=== PATIENT | male | born 1940 | race Two or more races ===

== ENCOUNTER 2024-10-29 10:46 | Inpatient (IN) | payer MEDICARE, OTHER ==
[2024-10-29] VITALS (27 sets, daily range): BP systolic 82–120; BP diastolic 36–57; PULSE 55–75; RESP 12–21; TEMP 97.9–98.1; O2SAT 94–99
[~2024-10-29] VITALS: Ht 165.1 cm; Wt 57.0 kg
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
--- NOTE | 2024-10-29 11:11 | ED.PDOC ---
HPI Comments 83 y/o M, with PMHX of HTN, HLD, CAD, DE and testicular hernia, brought in by daughter presents to the ED for CC of chest pain. Per patient's daughter, patient has been experiencing substernal non-radiating chest pain since 0800 this morning (10/29/24). Patient's daughter relays, that patient has been getting up more than usual throughout the night and has been complaining of urinary retention; patient seen at [facility] where 600ml of clear yellow urine was removed from his bladder. Patient was further relayed, to [facility] ED for changes in his EKG. Upon arrival to the ED, patient's EKG showed right bundle branch block and ST elevation in the lateral leads; patient transferred to bed 19 and code STEMI called. Chief Complaint: Chest Pain Time Seen by MD: 11:00 Reviewed Notes: Nurses Notes, Medications, Allergies Information Source: Patient, Relative (Child) Mode of Arrival: Ambulatory Severity: Mild Timing: Hours Duration: Intermittent Prehospital treatment: 12 Lead EKG Location: Substernal Radiation: No Radiation Quality: Pressure Onset: At Rest Cardiac Risk Factors: Family History, Hyperlipidemia, HTN PE Risk Factors: None History of: DE Modifying Factors: Nothing Associated Signs and Symptoms: None Past Medical History PAST MEDICAL HISTORY: CAD, High Lipids, HTN, DE Past Medical History (Other): TESTICULAR HERNIA Surgical History (Other): STENTS Family History Family History: Family hx of stroke Social History Smoker: Non-Smoker Alcohol: Denies ETOH Use Drugs: Denies Drug Use Lives In: Home Constitutional: denies: chills, diaphoresis, fatigue, fever, malaise, sweats, weakness, others EENTM: denies: blurred vision, double vision, ear bleeding, ear discharge, ear drainage, ear pain, ear ringing, eye pain, eye redness, hearing loss, mouth pain, mouth swelling, nasal discharge, nose bleeding, nose congestion, nose pain, photophobia, tearing, throat pain, throat swelling, voice changes, others Respiratory: denies: cough, hemoptysis, orthopnea, SOB at rest, shortness of breath, SOB with excertion, stridor, wheezing, others Cardiovascular: reports: chest pain; denies: dizzy spells, diaphoresis, Dyspnea on exertion, edema, irregular heart beat, left arm pain, lightheadedness, palpitations, PND, syncope, others Gastrointestinal: denies: abdomen distended, abdominal pain, blood streaked bowels, constipated, diarrhea, dysphagia, difficulty swallowing, hematemesis, melena, nausea, poor appetite, poor fluid intake, rectal bleeding, rectal pain, vomiting, others Genitourinary: reports: others (URINARY RETENTION); denies: burning, dysuria, flank pain, frequency, hematuria, incontinence, penile discharge, penile sore, pain, testicle pain, testicle swelling, urgency Neurological: denies: dizziness, fainting, headache, left sided numbness, left sided weakness, numbness, paresthesia, pre-existing deficit, right sided numbness, right sided weakness, seizure, speech problems, tingling, tremors, weakness, others Musculoskeletal: denies: back pain, gout, joint pain, joint swelling, muscle pain, muscle stiffness, neck pain, others Integumetry: denies: bruises, change in color, change in hair/nails, dryness, laceration, lesions, lumps, rash, wounds, others Allergic/Immunocompromised: denies: Difficulty Healing, Frequent Infections, Hives, Itching, others Hematologic/Lymphatic: denies: anemia, blood clots, easy bleeding, easy bruising, swollen glands, others Endocrine: denies: excessive hunger, excessive sweating, excessive thirst, excessive urination, flushing, intolerance to cold, intolerance to heat, u nexplained weight gain, unexplained weight loss, others Psychiatric: denies: anxiety, bipolar disorder, depression, hopeless, panic disorder, schizophrenia, sleepless, suicidal, others All Other Systems: Reviewed and Negative Physical Exam General Appearance: Moderate Distress HEENT: Pale Conjuntivae (L), Pale Conjuntivae (R), Pharynx Normal, TMs Normal Neck: Full Range of Motion, Non-Tender, Normal, Normal Inspection Respiratory: Chest Non-Tender, Lungs Clear, No Accessory Muscle Use, No Re spiratory Distress, Normal Breath Sounds Cardiovascular: No Edema, No JVD, No Murmur, No Gallop, Normal Peripheral Pulses, Regular Rate/Rhythm Breast Exam: Deferred Gastrointestinal: No Organomegaly, Non Tender, No Pulsatile Mass, Normal Bowel Sounds, Soft Genitalia: Deferred Pelvic: Deferred Rectal: Deferred Extremities: No calf tenderness, Normal capillary refill, Normal inspection, Normal range of motion, Non-tender, No pedal edema Musculoskeletal : Apperance: Normal Neurologic: Alert, rubber goods inspector II-XII nml as Tested, Motor Weakness, Normal Affect, No Sensory Deficits Cerebellar Function: Normal Reflexes: Normal Skin: Dry, Normal Color, Warm Lymphatic: No Adenopathy EKG EKG : Pulse Rate (adult): 70 Bonnyman: Normal Cardiac Rhythm: NSR Block: RBBB Hypertrophy: None Comments ST ELEVATION IN LATERAL LEADS Was a procedure done? Was a procedure done?: No CP Differential Dx Differential Diagnosis: Angina, Electrolyte Disorder, Heart Failure, DE, Pulmonary Embolus Differential Diagnosis: CHF Differential Diagnosis: Pericarditis X-Ray, Labs, Meds, VS Vital Signs Date Time Temp Pulse Resp B/P (MAP) Pulse Ox O2 Delivery O2 Flow Rate FiO2 10/29/24 11:11 70 10/29/24 10:52 70 10/29/24 10:50 98.7 72 18 126/72 (90) 96 98.7 Lab Test 10/29/24 10:54 Range/Units White Blood Count Pending Red Blood Count Pending Hemoglobin Pending Hematocrit Pending Mean Corpuscular Volume Pending Mean Corpuscular Hemoglobin Pending Mean Corpuscular Hemoglobin Concent Pending Red Cell Distribution Width Pending Platelet Count Pending Mean Platelet Volume Pending Neutrophils (%) (Auto) Pending Lymphocytes (%) (Auto) Pending Monocytes (%) (Auto) Pending Basophils (%) (Auto) Pending Neutrophils # (Auto) Pending Lymphocytes # (Auto) Pending Monocytes # (Auto) Pending Sodium Level Pending Potassium Level Pending Chloride Level Pending Carbon Dioxide Level Pending Anion Gap Pending Blood Urea Nitrogen Pending Creatinine Pending Glomerular Filtration Rate Calc Pending BUN/Creatinine Ratio Pending Serum Glucose Pending Calcium Level Pending Magnesium Level Pending Total Bilirubin Pending Aspartate Amino Transferase (AST) Pending Alanine Aminotransferase (ALT) Pending Alkaline Phosphatase Pending Troponin I High Sensitivity Pending B-Type Natriuretic Peptide Pending Total Protein Pending Albumin Pending Triglycerides Level Pending Cholesterol Level Pending LDL Cholesterol Pending HDL Cholesterol Pending Thyroid Stimulating Hormone (TSH) Pending Current Medications Medications (Trade) Dose Ordered Sig/Olu Route Start Time Stop Time Status Last Admin Aspirin 324 mg ONCE ONCE PO 10/29/24 11:00 10/29/24 11:02 DC 10/29/24 11:14 Patient was given aspirin here in the emergency department's. Upon arrival, the patient had an EKG done and we did send it to the on-call STEMI engineering specialist technician (Dr. Jose) At this time, the patient is deemed a STEMI The patient is being sent to medical lab tech instructor. We have discussed the findings with the patient and his daughter. The patient was given heparin 4000 units IV push The patient's labs are pending and will be followed up by the hospitalist and the engineering specialist technician IV Hep-Lock was established and the patient has been taken to medical lab tech instructor at this time Images Reviewed?: Images reviewed and evaluated by me Time of 1ST Reevaluation: 11:30 Reevaluation 1ST: Unchanged Patient Education/Counseling: Diagnosis, Treatment, Prognosis Family Education/Counseling: Diagnosis, Treatment, Prognosis Departure 1 Departure Time of Disposition: 11:27 Impression: Primary Impression: STEMI (ST elevation myocardial infarction) Qualified Codes: I21.3 - ST elevation (STEMI) myocardial infarction of unspecified site Disposition: ADMITTED INPATIENT Admit to: ICU Condition: Fair Critical Care Note Critical Care Time?: Yes (35 min-critical care time only) Stability Stability form required: Yes Unstable for transfer: ICU, CCU, PCU, KARINA (Intensive VS monitoring), ED Physician Assesment (Clinical assesment) Heart Score Heart Score: Heart Score Response (Comments) Value History Moderate Suspicious [address]-Deviation 2 Age >65 2 Risk Factors 1 or 2 risk factors 1 Troponin N/A 0 Total 6 I personally scribed for KATERINA COOPER MD ([email or web address]) on 10/29/24 at 11:11. Electronically submitted by Brunilda Naik ([email or web address]). KATERINA COOPER MD Oct 29, 2024 11:11
--- NOTE | 2024-10-29 11:11 | DVHINCON2 ---
Date Seen: Oct 29, 2024 Referring Physician MD Roman Reason for Consultation STEMI History of Present Illness This is a pleasant Kazakh-speaking mostly 83-year-old man who presented to the emergency room with a chief complaint of chest pain since [id number] am. Describes his chest pain as substernal, nonradiating, pressure-like, intermittent, non provoked, and rated as 7/10. Complains also of urinary hesitancy, retention, and dribbling causing pelvic discomfort. He underwent a 12 lead electrocardiogram revealing an acute anterior wall ST-elevation myocardial infarction with reciprocal inferior ST changes for which Code STEMI was activated by Dr. Jose. Blood work is pending at this time. Medical history includes coronary artery disease status post PTCA including two MAURIZIO at [facility] [place] [facility] on 2000 and with current ASA therapy, agent, dyslipidemia, and testicular hernia. Past Medical History Past medical history reviewed. No other significant than mentioned above. Past Surgical History PTCA including two MAURIZIO, 2000 Family History Family history reviewed. Social History Denies the use of illicit drugs, alcohol, or tobacco use. Home Meds Home medications reviewed. Review of Systems Constitutional: No symptom reported Ears, Nose, & Throat: No symptom reported Eyes: No symptom reported Neurological: No symptoms reported Pulmonary/Respiratory: No symptom reported Cardiovascular: Chest pain Gastrointestinal: No symptom reported Genitourinary: Dysuria Musculoskeletal: No symptom reported Skin: No symptom reported Psychiatric: No symptom reported Endocrine: No symptom reported Hemotologic/Lymphatic: No symptom reported Vital Signs Vital Signs Date Time Temp Pulse Resp B/P (MAP) Pulse Ox O2 Delivery O2 Flow Rate FiO2 10/29/24 10:52 70 10/29/24 10:50 98.7 18 126/72 (90) 96 98.7 Physical Exam General Appearance: Cooperative. Well developed. Well nourished. In no acute distress Head Exam: Normal inspection Neck Exam: Normal inspection. Non-tender. Normal alignment Pulmonary/Respiratory: Chest non-tender. Clear bilateral breath sounds Cardiovascular/Chest: Regular rate and rhythm. S1, S2. Acute anterior wall [place] with reciprocal inferior ST changes. No murmurs. No JVD. Peripheral Pulses: 2+ Radial (R). 2+ Radial (L). 2+ Pedal (R). 2+ Pedal (L) Abdominal Exam: Normal bowel sounds. Soft. Nontender. No hepatospenomegaly. No masses Ankle Exam: Negative ankle edema Lower extremities: Negative lower extremity edema Neuro/Mental Status: A&O x4. Coherent Thoughts/Psych: Normal thought pattern. Appropriate mood and affect. Good judgement and insight Appearance: In no acute distress Skin Exam: Normal inspection. Normal color. Warm. Dry Labs/Diagnostic Data Labs Test 10/29/24 10:54 Range/Units Assessment Acute anterior wall myocardial infarction Coronary artery disease status post PTCA including two MAURIZIO, on ASA Hypertension Dyslipidemia Plan/Recommendation (Dr. Jose) Scheduled for emergent cardiac catheterization and coronary angiogram with Dr. Jose. All risks and benefits of the procedure were discussed with the patient who agrees to proceed with intervention. All questions answered. The patient was loaded with ASA, Plavix, and heparin IV. We will continue further cardiac evaluation with a transthoracic echocardiogram to rule out structural heart disease. Continue ACS protocol. Further orders per clinical course. Thank you for allowing us to participate in this patient's care. Please call if you have any questions or concerns. Critical care time: 40 min. This medical document was created using an electronic medical record system with voice recognition software and computerized dictation system. Although this document has been carefully reviewed, there might still be some phonetic and typographical errors. Occasional wrong-word or ``sound-alike substitutions may have occurred due to the inherent limitations of voice recognition software. These areas are purely typographical due to imperfections of the software programs and do not reflect any compromise in the patient's medical care. Please read the chart carefully and recognize, using context, where these substitutions have occurred. Plan discussed with: Patient, Daughter, Other NYHA Physical activity limitations: NA Date of Service: Oct 29, 2024 Billing Provider: Yajaira Lopez Cardiology Common Codes: 30637-[id number] CARE 30-74 MIN YAJAIRA LOPEZ [facility] Oct 29, 2024 11:11
[2024-10-29] MEDS: ASPirin 81 mg TAB PO ONE (11:14)
[2024-10-29] MEDS: CLOPIDOGREL BISULFATE 75 MG TAB ONE (11:14)
[2024-10-29 11:29] LABS: Basophils # (auto) 0 10 ^3/uL (0-0.2); Basophils % (auto) 0.5 % (0.0-2.0); Eosinophils # (auto) 0 10 ^3/uL (0-0.8); Eosinophils % (auto) 0.5 % (0.0-7.0); Hematocrit 41.9 % (41.0-53.0); Hemoglobin 13.6 g/dL (13.5-17.5); Lymphocytes # (auto) 1.2 10 ^3/uL (0.4-5.4); Lymphocytes % (auto) 14.2 % (10.0-50.0); Mean Corpuscular Hemoglobin 29.9 pg (28.0-32.0); Mean Corpuscular Hgb Conc. 32.5 g/dL (32.0-36.0); Mean Corpuscular Volume 92.1 fL (80.0-100.0); Monocytes # (auto) 0.4 10 ^3/uL (0-1.3); Monocytes % (auto) 5.1 % (0.0-12.0); Neutrophils # (auto) 6.6 10 ^3/uL (1.6-8.6); Neutrophils % (auto) 79.7 % (37.0-80.0); Platelet Count (auto) 185 10^3/uL (140-450); Red Blood Cells 4.55 10^6/uL (4.5-5.90); White Blood Cell 8.2 10^3/uL (4.4-10.8)
[2024-10-29 11:33] LABS: Urine Bacteria None Seen /hpf (None Seen)
[2024-10-29 11:35] LABS: Alanine Aminotransferase 22 U/L (7-40); Albumin 4.3 g/dL (3.2-4.8); Alkaline Phosphatase 78 U/L (46-116); Anion Gap 8 (5-15); Aspartate Aminotransferase 21 U/L (13-40); BUN/Creatinine Ratio 17.5 (10.0-20.0); Blood Urea Nitrogen 18 mg/dL (9-23); Calcium 9.7 mg/dL (8.7-10.4); Carbon Dioxide 27 mmol/L (20-31); Chloride 106 mmol/L (98-107); Potassium 4.4 mmol/L (3.5-5.1); Sodium 141 mmol/L (136-145); Total Protein 6.4 g/dL (5.7-8.2)
[2024-10-29 11:36] LABS: Bilirubin, Total 0.8 mg/dL (0.2-1.0)
[2024-10-29 11:38] LABS: Glucose 112 mg/dL (74-106)
--- NOTE | 2024-10-29 11:38 | DVH ---
EXAM: XY CHEST PORTABLE HISTORY: CP COMPARISON: None TECHNIQUE: Portable upright AP view of the chest was performed. FINDINGS: No pneumothorax, consolidative infiltrates, or pulmonary edema. The heart is borderline enlarged. The re is mild thoracic dextroscoliosis. The humeral heads are high-riding and abut the undersurfaces of the acromions, consistent with significant rotator cuff tendinopathy bilaterally. IMPRESSION: No acute intrathoracic process.
[2024-10-29 11:55] LABS: Urine Blood 1+ /uL (Negative); Urine Clarity Clear (Clear); Urine Color Light-Yellow (Yellow); Urine Mucus FEW (None Seen); Urine Protein, UAD Negative (Negative); Urine Specific Gravity 1.015 (1.001-1.035); Urine Squamous Epithelial Cell None Seen /hpf (<5); Urine Urobilinogen Normal (Negative); Urine WBC 3 /HPF (0-3); Urine pH 5.5 (5.0-9.0)
[2024-10-29 12:20] LABS: LDL Cholesterol 55 mg/dL (< 100); Magnesium 1.8 mg/dL (1.6-2.6)
[2024-10-29 12:21] LABS: Cholesterol 141 mg/dL (< 200); HDL Cholesterol 40 mg/dL (40-59); Triglycerides 212 mg/dL (< 150)
--- NOTE | 2024-10-29 12:41 | DVHOP2 ---
Operative Report - 2 Report Details Date: 10/29/24 Preop Diagnosis: Acute ST-elevation myocardial infarction. Postop Diagnosis: Successful stenting of the LAD Surgeon: Abel Jose MD Anesthesiologist: Conscious sedation Anesthesia: Mac, Local (Fentanyl and Versed administered perioperatively. Patient was monitored throughout the procedure. ) Implant: Medtronic placido Ritchie drug-eluting stents Consent: The patient was informed of the risks and benefits of the procedure. These include but are not limited to complications of anesthesia, postoperative infection, incomplete relief of symptoms, recurrence of symptoms, damage to blood vessels, nerves and tendons, deep venous thrombosis, pulmonary embolism and possible need for repeat surgery in the future. Complications: No complications Estimated Blood Loss: 5 cc Findings: 9% stenosis of mid LAD. Tandem lesions. Indications for Surgery: Acute ST-elevation myocardial infarction Name of Procedure Performed Left heart catheterization. Bilateral cine coronary angiography. Left ventriculography. PTCA and stenting of the LAD. Intravascular ultrasound evaluation of the LAD. Procedure Details Procedure Details: Prior local anesthesia with 2% lidocaine to the right wrist and full informed consent obtained. Under fluoroscopic and ultrasound guidance we gained access into the radial artery. A six Hebrew sheath was in place and each three five EBU guide was then placed to evaluate the right and left coronary ostia and for ventriculography without complications. Hemodynamics: Aortic blood pressure was 110/70 end-diastolic pressure was 10 there was no gradient across the aortic valve on pullback. Coronary anatomy the RCA is a large vessel. It was nondominant. It was normal in its proximal mid and distal segments. Left main is large and normal. The circumflex is large with two marginals and the PDA free of significant disease. The LAD is a large vessel it is stented proximally. Distal to the stent there are tandem lesions of 95% stenosis to the level of the mid LAD. The distal LAD is rather small. The apical segment of the LAD has a 95% stenosis. This is small-vessel. Ventriculography in the JOLLEY projection reveals an EF about 25-50% with anterior apical akinesis. Angioplasty was performed for which a choice floppy wire was placed across the area of stenosis. We then performed angioplasty with a two five balloon. We placed a large 3-0 by 34 mm stent into the LAD. An intravascular ultrasound was then used to evaluate proper placement. There was a small distal dissection at the edge that was noted. We placed a 3.0 x 12 mm stent also a Medtronic Ritchie placido drug-eluting stent. This was inflated to approximately 12 atmospheres. Mild distal spasm was noted. Intravascular ultrasound revealed adequate apposition of the stents. Impression: Successful PTCA and stenting of the LAD. Decreased left ventricular ejection fraction. Normal left ventricular end-diastolic pressure at rest. Single-vessel coronary artery disease involving the LAD. Recommendations: Risk factor modification dual antiplatelet therapy and lipid- lowering therapy to continue. Monitoring entry for congestive heart failure. Condition Good Disposition Still a Patient Date of Service: Oct 29, 2024 Billing Provider: ABEL JOSE Sr., MD Cardiology Common Codes: 44214-[id number] INP/OBS CARE (High) Cardiology Procedure Codes: 14466 -PTCA W/STENT PLACEMENT, [id number] FOR STEMI W/STENT (Intravascular ultrasound evaluation of the LAD pulmonary) ABEL JOSE Sr., MD Oct 29, 2024 12:41
[2024-10-29] MEDS ORDERED: MORPHINE SULFATE INJ 2 MG/ml SYRG IV PRN (13:45)
--- NOTE | 2024-10-29 13:54 | DVHHP2 ---
Review of Systems Allergies: Coded Allergies: No Known Drug Allergy (Verified Allergy, Unknown, 10/29/24) Medications Current Medications Medications Dose Ordered Sig/Olu Route Start Time Stop Time Status Last Admin Dose Admin Aspirin 81 mg DAILY PO 10/30/24 10:00 Clopidogrel Bisulfate 75 mg DAILY PO 10/30/24 10:00 Metoprolol Tartrate 12.5 mg BID PO 10/29/24 22:00 Nitroglycerin 0.4 mg Q5MINP PRN SL 10/29/24 13:45 UNV Morphine Sulfate 2 mg Q30M PRN IV 10/29/24 13:45 UNV Exam Vital Signs Vital Signs Date Time Temp Pulse Resp B/P (MAP) Pulse Ox O2 Delivery O2 Flow Rate FiO2 10/29/24 11:11 70 10/29/24 11:05 98.7 12 128/71 (90) 99 98.7 10/29/24 11:05 Nasal Cannula* 2 28 Labs/Xrays Labs Test 10/29/24 11:31 10/29/24 10:54 Range/Units Urine Color Light-yellow Yellow Urine Clarity Clear Clear Urine pH 5.5 5.0-9.0 Urine Specific [place] 1.015 1.001-1.035 Urine Protein Negative Negative Urine Ketones Negative Negative Urine Blood 1+ H Negative /uL Urine Nitrite Negative Negative Urine Bilirubin Negative Negative Urine Urobilinogen Normal Negative mg/dL Urine Leukocyte Esterase Negative Negative /uL Urine RBC 14 0 - 3 /hpf Urine Microscopic WBC 3 0-3 /HPF Urine Squamous Epithelial Cells None seen <5 /hpf Urine Bacteria None seen None Seen /hpf Urine Mucus Few None Seen Urine Glucose Normal Normal mg/dL White Blood Count 8.2 4.4-10.8 10^3/uL Red Blood Count 4.55 4.5-5.90 10^6/uL Hemoglobin 13.6 13.5-17.5 g/dL Hematocrit 41.9 41.0-53.0 % Mean Corpuscular Volume 92.1 80.0-100.0 fL Mean Corpuscular Hemoglobin 29.9 28.0-32.0 pg Mean Corpuscular Hemoglobin Concent 32.5 32.0-36.0 g/dL Red Cell Distribution Width 14.0 11.8-14.3 % Platelet Count 185 140-450 10^3/uL Mean Platelet Volume 9.5 6.9-10.8 fL Neutrophils (%) (Auto) 79.7 37.0-80.0 % Lymphocytes (%) (Auto) 14.2 10.0-50.0 % Monocytes (%) (Auto) 5.1 0.0-12.0 % Eosinophils (%) (Auto) 0.5 0.0-7.0 % Basophils (%) (Auto) 0.5 0.0-2.0 % Neutrophils # (Auto) 6.6 1.6-8.6 10 ^3/uL Lymphocytes # (Auto) 1.2 0.4-5.4 10 ^3/uL Monocytes # (Auto) 0.4 0-1.3 10 ^3/uL Eosinophils # (Auto) 0 0-0.8 10 ^3/uL Basophils # (Auto) 0 0-0.2 10 ^3/uL Nucleated Red Blood Cells 0.0 % Sodium Level 141 136-145 mmol/L Potassium Level 4.4 3.5-5.1 mmol/L Chloride Level 106 98-107 mmol/L Carbon Dioxide Level 27 20-31 mmol/L Anion Gap 8 5-15 Blood Urea Nitrogen 18 9-23 mg/dL Creatinine 1.03 0.700-1.30 mg/dL Glomerular Filtration Rate Calc 72 >90 mL/min BUN/Creatinine Ratio 17.5 10.0-20.0 Serum Glucose 112 H 74-106 mg/dL Calcium Level 9.7 8.7-10.4 mg/dL Magnesium Level 1.8 1.6-2.6 mg/dL Total Bilirubin 0.8 0.2-1.0 mg/dL Aspartate Amino Transferase (AST) 21 13-40 U/L Alanine Aminotransferase (ALT) 22 7-40 U/L Alkaline Phosphatase 78 46-116 U/L Troponin I High Sensitivity 2199 *H </=54 ng/L B-Type Natriuretic Peptide 84.28 0-100 pg/mL Total Protein 6.4 5.7-8.2 g/dL Albumin 4.3 3.2-4.8 g/dL Triglycerides Level 212 H < 150 mg/dL Cholesterol Level 141 < 200 mg/dL LDL Cholesterol 55 < 100 mg/dL HDL Cholesterol 40 40-59 mg/dL Thyroid Stimulating Hormone (TSH) 2.16 0.55-4.78 uIU/mL Assessment/Plan Assessment/Plan see dictated note Plan discussed with: Patient, Daughter My Orders Orders - NETTA ACOSTA MD Procedure Category Date Status Time Admit ADMIT 10/29/24 Transmitted 13:40 Nitroglycerin [facility] 10/29/24 Logged Sublingual (Ntrostat 13:45 Morphine Sulfate [facility] 10/29/24 Logged Injection 13:45 Stat Ekg For Chest [facility] 10/29/24 In Process Pain 13:40 Notify Md Of Changes [facility] 10/29/24 In Process From Base 13:40 Review Consultant For [facility] 10/29/24 In Process 24 Hours 13:40 Emergency Dysrhythmia [facility] 10/29/24 In Process Protocol 13:40 Rhythm Strips Once [facility] 10/29/24 In Process Every Shift 13:40 Oxygen By Nasal RT 10/29/24 Transmitted Cannula 13:40 Date of Service: Oct 29, 2024 Billing Provider: NETTA ACOSTA MD Common Visit Codes: [id number] CARE 30-74 MIN NETTA ACOSTA MD Oct 29, 2024 13:54
[2024-10-29] MEDS ORDERED: ACETAMINOPHEN 325 MG TAB PO PRN (14:00)
[2024-10-29] MEDS ORDERED: ONDANSETRON HCL 4 MG/2 ML VIAL IV PRN (14:00)
--- NOTE | 2024-10-29 14:11 | DVHHP ---
ADMIT DATE: 10/29/2024 HISTORY OF PRESENT ILLNESS: The patient is an 83-year-old gentleman who was admitted after he had initial severe suprapubic pain with difficulty in urination. The patient subsequently developed increasing chest pain. The patient was taken to [facility] and subsequently brought to the Emergency Room. The patient denies any dizziness or syncope. No history of nausea. No history of vomiting. REVIEW OF SYSTEMS: Review of rest of systems are otherwise currently negative. PAST MEDICAL HISTORY: Significant for coronary artery disease, status post stent, as well as a history of hypertension, hyperlipidemia and BPH. MEDICATIONS: He takes Hytrin and the rest of the medications are unknown. ALLERGIES: No known drug allergies. SOCIAL HISTORY: Denies smoking or alcohol. Lives at home with his . FAMILY HISTORY: Negative. PHYSICAL EXAMINATION: GENERAL: The patient is awake, alert. VITAL SIGNS: Temperature 98.7, pulse 70 per minute, blood pressure 120/71. SHEENT: Unremarkable. NECK: No JVD, no pedal edema. LUNGS: Equal bilaterally. No added sounds. CARDIOVASCULAR: S1 and S2 are regular. No murmurs. ABDOMEN: Soft. There is no organomegaly. NEUROLOGIC: Nonfocal. MUSCULOSKELETAL: Normal. ASSESSMENT AND PLAN: * Acute myocardial infarction. The patient is status post angiography with stent placement in LAD. He will continue on aspirin and Plavix. * Questionable acute systolic heart failure. An echo will be obtained. * Hypertension. * Hyperlipidemia. * BPH. The patient is status post Chapa. He will be placed on Flomax. * Hyperlipidemia. Critical care time spent was 38 minutes. MD CHARISMA Ge/TEMI TID: [id number] RECEIPT: [id number]
[2024-10-29] MEDS: NITROGLYCERIN 0.4 MG SL TAB SL PRN (17:01)
[2024-10-29] MEDS: TAMSULOSIN HYDROCHLORIDE 0.4 MG CAP PO SCH (19:55)
[2024-10-29] MEDS: IODIXANOL 320MG/ML 100ML BTL IV ONE (20:03)
[2024-10-29] MEDS: fentaNYL CITRATE 100 MCG/2 ML VL ONE (20:03)
[2024-10-29] MEDS: HEPARIN IN NS 1000Units/500mL 1,500 ML ONE (20:03)
[2024-10-29] MEDS: VERAPAMIL 2.5MG/ML INJ 2ML VIAL IV ONE (20:04)
[2024-10-29] MEDS: MIDAZOLAM HCL 2MG/2ML 2ml VIAL (1mg/ml) ONE (20:04)
[2024-10-29] MEDS: LIDOCAINE 2%HCL (LOCAL ANESTH.) INJ 20ML MDV ONE (20:04)
[2024-10-29] MEDS: SODIUM CHL 0.9% 50 ML ONE (20:04)
[2024-10-29] MEDS: ONDANSETRON HCL 4 MG/2 ML VIAL IV ONE (20:05)
[2024-10-29] MEDS: HEPARIN 1,000 UNITS/ml 1ML VIAL IV ONE (20:05)
[2024-10-29] MEDS: ANGIOMAX 250 MG VIAL IV ONE (20:05)
[2024-10-29] MEDS: MORPHINE SULFATE INJ 2 MG/ml SYRG IV ONE (20:05)
[2024-10-29] MEDS: HEPARIN SODIUM (PORCINE) 5000 UNITS/ML 1ML VIAL ONE (20:06)
[2024-10-29] MEDS: EPINEPHrine HCL 1 MG/10 ML SYRG ONE (20:06)
[2024-10-29] MEDS: NOREPINEPHRINE 8 MG/250ML KIT 0 ML IV ONE (20:06)
--- NOTE | 2024-10-29 20:14 | DVHSR ---
APPROVED REPORT EXAM: Two-dimensional and M-mode echocardiogram with Doppler and color Doppler. Blood Pressure: 128/71 mmHg INDICATION STEMI RISK FACTORS Height: 65, Weight: 126 DIMENSIONS LVDd (3.8-5.7cm)LA (2D)4.0 (1.9-4.0cm)Aortic Root3.2 (2.0-3.7cm) LVDs (2.5-4.0cm)LA (MM) (1.9-4.0cm)Aortic Cusp Exc1.4 (1.5-2.0cm) EF (%) 42.0 (55-70%)Rt. Atrium3.6 (1.9-4.0cm)Asc. Aorta cm Mitral Valve MitralMitral Stenosis E wave0.96m/sMV Mean GR.2mmHg A wave0.80m/sMV Peak GR.84mmHg E/A ratio1.22D MVAcm2 DECEL [id number] 1/2 [id number] IVRTmsDop MVA2.61cm2 Aortic Valve Aortic ValveAortic Stenosis V10.78m/Benito Mean GR.4mmHg V21.40m/Benito Peak GR.8mmHg LVOT Diameter1.8 (1.8-2.4cm)Doppler AVA1.42cm2 AI P 1/2 Pfuo153.99ms Pulmonic Valve V20.79m/s Tricuspid Valve TR Velocity3.18m/s [id number] Conclusion Technically good study. Sinus rhythm. Left ventricular enlargement. Left atrial enlargement of mild degree. Mild aortic sclerosis. Tricuspid and pulmonic or structurally normal. Left ventricular function is diminished. There is anterior hypokinesis of severe degree with anterio r apical akinesis. Overall estimated ejection fraction is calculated at approximately 30%. Moderate tricuspid regurgitation. Mild aortic insufficiency. No pericardial effusion masses or vegetations.
[2024-10-29] MEDS: KETOROLAC TROMETH 30 MG/ML 1ML VIAL IV ONE (20:28)
[2024-10-29] MEDS: ATORVASTATIN 20 MG TAB PO SCH (21:25)
[2024-10-29] MEDS: METOPROLOL TARTRATE 25 MG TAB PO SCH (21:27)
[2024-10-29] MEDS: ALBUMIN 5% 250 ML IV ONE (23:23)
[2024-10-30] VITALS (31 sets, daily range): BP systolic 80–125; BP diastolic 34–73; PULSE 59–86; RESP 8–22; TEMP 97.9–99.1; O2SAT 95–100
[2024-10-30 04:24] LABS: Anion Gap 6 (5-15); Carbon Dioxide 26 mmol/L (20-31); Potassium 3.7 mmol/L (3.5-5.1); Sodium 140 mmol/L (136-145)
[2024-10-30 04:25] LABS: Basophils # (auto) 0 10 ^3/uL (0-0.2); Basophils % (auto) 0.6 % (0.0-2.0); Eosinophils # (auto) 0.1 10 ^3/uL (0-0.8); Eosinophils % (auto) 1.1 % (0.0-7.0); Hematocrit 34.4 % (41.0-53.0); Hemoglobin 11.3 g/dL (13.5-17.5); Lymphocytes # (auto) 2.1 10 ^3/uL (0.4-5.4); Lymphocytes % (auto) 25.7 % (10.0-50.0); Mean Corpuscular Hemoglobin 30.1 pg (28.0-32.0); Mean Corpuscular Hgb Conc. 32.8 g/dL (32.0-36.0); Mean Corpuscular Volume 91.7 fL (80.0-100.0); Monocytes # (auto) 0.7 10 ^3/uL (0-1.3); Monocytes % (auto) 8.8 % (0.0-12.0); Neutrophils # (auto) 5.2 10 ^3/uL (1.6-8.6); Neutrophils % (auto) 63.8 % (37.0-80.0); Platelet Count (auto) 137 10^3/uL (140-450); Red Blood Cells 3.76 10^6/uL (4.5-5.90); Red Cell Distribution Width 14.1 % (11.8-14.3); White Blood Cell 8.1 10^3/uL (4.4-10.8)
[2024-10-30 04:30] LABS: Blood Urea Nitrogen 15 mg/dL (9-23); Glucose 93 mg/dL (74-106)
[2024-10-30 04:52] LABS: Chloride 108 mmol/L (98-107)
--- NOTE | 2024-10-30 05:58 | DVH ---
CHEST RADIOGRAPH Indication: CAD Technique: Single frontal view of the chest was obtained Comparison: XY CHEST PORTABLE on DOS: 10/29/24 FINDINGS: Lines and Tubes: None Lungs: No focal consolidation. Pleura: No effusion. No pneumothorax. Cardiomediastinal contours: Unremarkable Bones: No acute osseous abnormality. IMPRESSION: 1. No acute cardiopulmonary disease.
[2024-10-30] MEDS: CARVEDILOL 3.125 MG TAB PO SCH (10:30)
[2024-10-30] MEDS: CLOPIDOGREL BISULFATE 75 MG TAB PO SCH (10:30)
[2024-10-30] MEDS: ASPirin 81 mg TAB PO SCH (10:31)
--- NOTE | 2024-10-30 11:07 | DVHPN2 ---
Progress Note Date Seen: Oct 30, 2024 Medical Necessity Reason Pt with a Central, PICC or Fol: Yes The following are medically ne: Gonzalez Catheter Reason for gonzalez catheter: Strict I&O Subjective Patient reports: No new complaints Review of Systems: HEENT:Normal, CVS:Normal, RESPIRATORY:Normal, GI:Normal, :Normal, MSK:Normal, NEURO:Normal Objective vital signs Vital Sign Date Time Temp Pulse Resp B/P (MAP) Pulse Ox O2 Delivery O2 Flow Rate FiO2 10/30/24 10:30 66 112/67 10/30/24 08:00 8 99 Nasal Cannula* 2 28 10/30/24 04:00 97.9 97.9 Total Intake and Output 10/29/24 10/29/24 10/30/24 15:00 23:00 07:00 Intake Total 100 ml 100 ml Output Total 400 ml 300 ml Balance -300 ml -200 ml medications Current Medications Medications Dose Ordered Sig/Olu Route Start Time Stop Time Status Last Admin Dose Admin Aspirin 81 mg DAILY PO 10/30/24 10:00 10/30/24 10:31 81 MG Clopidogrel Bisulfate 75 mg DAILY PO 10/30/24 10:00 10/30/24 10:30 75 MG Nitroglycerin 0.4 mg Q5MINP PRN SL 10/29/24 13:45 10/29/24 17:17 0.4 MG Morphine Sulfate 2 mg Q30M PRN IV 10/29/24 13:45 Atorvastatin Calcium 40 mg HS PO 10/29/24 22:00 10/29/24 21:25 40 MG Tamsulosin HCl 0.4 mg QPM PO 10/29/24 18:00 10/29/24 19:55 0.4 MG Acetaminophen 650 mg Q6HP PRN PO 10/29/24 14:00 Ondansetron HCl 4 mg Q6HPRN PRN IV 10/29/24 14:00 Sacubitril/ Valsartan 1 tab BID PO 10/30/24 22:00 Carvedilol 3.125 mg Q12HR PO 10/30/24 10:00 10/30/24 10:30 3.125 MG Examination: GENERAL:Normal, HEENT:Normal, NECK:Normal, LUNGS:Normal, CVS:Normal, ABDOMEN:Normal, MSK:Normal, SKIN:Normal, NEURO:Normal, :Normal laboratory and microbiology Laboratory Tests 10/30/24 03:21 Test 10/30/24 03:21 Range/Units Serum Glucose 93 74-106 mg/dL Problem List/Assessment/Plan Problem List/Assessment/Plan * Acute myocardial infarction. The patient is status post angiography with stent placement in LAD. He will continue on aspirin and Plavix. * acute systolic heart failure: coreg, entresto * Hypertension. * Hyperlipidemia. * BPH. The patient is status post Gonzalez. He will be placed on Flomax. * Hyperlipidemia. advance care planning- full code- time spent 19 mins Plan discussed with: Patient My Orders My Orders Orders - NETTA ACOSTA MD Procedure Category Date Status Time Admit ADMIT 10/29/24 Transmitted 13:40 Nitroglycerin PHA 10/29/24 In Process Sublingual (Ntrostat 13:45 Morphine Sulfate PHA 10/29/24 In Process Injection 13:45 Stat Ekg For Chest DEREK 10/29/24 In Process Pain 13:40 Notify Md Of Changes DEREK 10/29/24 In Process From Base 13:40 Personnel Monitor For [facility] 10/29/24 In Process 24 Hours 13:40 Emergency Dysrhythmia DEREK 10/29/24 In Process Protocol 13:40 Rhythm Strips Once DEREK 10/29/24 In Process Every Shift 13:40 Oxygen By Nasal RT 10/29/24 Transmitted Cannula 13:40 Atorvastatin (Lipitor) PHA 10/29/24 In Process 22:00 Tamsulosin PHA 10/29/24 In Process Hydrochloride (Flomax) 18:00 Acetaminophen Tablet PHA 10/29/24 In Process (Tylenol Tablet) 14:00 Ondansetron Hcl PHA 10/29/24 In Process (Zofran) 14:00 Chest Portable XY 10/30/24 Resulted 06:00 Mrsa Screen UZMA 10/29/24 In Process 15:30 Pt Request For Service PT 10/30/24 Transmitted 11:04 Transfer Orders XFER 10/30/24 Transmitted 11:04 Basic Metabolic Panel LAB 10/31/24 Verified 06:00 Complete Blood Count LAB 10/31/24 Verified 06:00 Date of Service: Oct 30, 2024 Billing Provider: NETTA ACOSTA MD Common Visit Codes: [id number] INP/OBS CARE(HIGH) Secondary Visit Codes: [id number] CARE PLAN 30 MINUTES NETTA ACOSTA MD Oct 30, 2024 11:07
--- NOTE | 2024-10-30 14:36 | DVHPN2 ---
Consult Progress Note Subjective Other Systems: Patient denies any chest pain or cardiac symptoms at time of assessment. Normal sinus rhythm on cardiac care nurse Objective vital signs Vital Sign Date Time Temp Pulse Resp B/P (MAP) Pulse Ox O2 Delivery O2 Flow Rate FiO2 10/30/24 14:00 71 15 107/56 (73) 95 10/30/24 12:00 98.7 98.7 10/30/24 08:00 Nasal Cannula* 2 28 Total Intake and Output 10/29/24 10/29/24 10/30/24 15:00 23:00 07:00 Intake Total 100 ml 100 ml Output Total 400 ml 300 ml Balance -300 ml -200 ml medications Current Medications Medications Dose Ordered Sig/Olu Route Start Time Stop Time Status Last Admin Dose Admin Aspirin 81 mg DAILY PO 10/30/24 10:00 10/30/24 10:31 81 MG Clopidogrel Bisulfate 75 mg DAILY PO 10/30/24 10:00 10/30/24 10:30 75 MG Nitroglycerin 0.4 mg Q5MINP PRN SL 10/29/24 13:45 10/29/24 17:17 0.4 MG Morphine Sulfate 2 mg Q30M PRN IV 10/29/24 13:45 Atorvastatin Calcium 40 mg HS PO 10/29/24 22:00 10/29/24 21:25 40 MG Tamsulosin HCl 0.4 mg QPM PO 10/29/24 18:00 10/29/24 19:55 0.4 MG Acetaminophen 650 mg Q6HP PRN PO 10/29/24 14:00 Ondansetron HCl 4 mg Q6HPRN PRN IV 10/29/24 14:00 Sacubitril/ Valsartan 1 tab BID PO 10/30/24 22:00 Carvedilol 3.125 mg Q12HR PO 10/30/24 10:00 10/30/24 10:30 3.125 MG Examination: GENERAL:Normal, LUNGS:Normal, CVS:Normal, NEURO:Normal laboratory and microbiology Laboratory Tests 10/30/24 03:21 Test 10/30/24 03:21 Range/Units Serum Glucose 93 74-106 mg/dL Problem List/Assessment/Plan Problem List/Assessment/Plan Acute ST-elevation myocardial infarction s/p PTCA x 1 MAURIZIO to LAD Coronary artery disease with history of 2 MAURIZIO (on ASA) Acute on chronic HFrEF, NYHA class III, newly diagnosed Hypertension Dyslipidemia Moderate tricuspid regurgitation BPH Plan/recommendations (Dr. Jose): Case discussed with . The patient came in with acute ST segment elevation myocardial infarction and was emergently taken to the lab courier and underwent a coronary angiogram with left heart catheterization with successful PTCA and stenting of the LAD on 10/29/24. Continue with dual antiplatelet therapy and lipid-lowering agent. Transthoracic echocardiogram reveals EF approximately 30%. Initiate guideline directed medical therapy for CHF as blood pressure permits. Thank you for allowing us to care for this patient. Please call with any questions or concerns. Critical care time spent: 39 minutes. This medical document was created using an electronic medical record system with voice recognition software and computerized dictation system. Although this document has been carefully reviewed, there might still be some phonetic and typographical errors. Occasional wrong-word or ``sound-alike substitutions may have occurred due to the inherent limitations of voice recognition software. These areas are purely typographical due to imperfections of the software programs and do not reflect any compromise in the patient's medical care. Please read the chart carefully and recognize, using context, where these substitutions have occurred. Plan discussed with: Patient Date of Service: Oct 30, 2024 Billing Provider: KATHRYN HORVATH Common Visit Codes: [id number] CARE 30-74 MIN KATHRYN HORVATH Oct 30, 2024 14:36
--- NOTE | 2024-10-30 15:19 | ECG ---
[facility] Test Date: 2024-10-29 Test Time: 16:57:07 Pat Name: FINN STORY Department: ICU Room: [address] [place] [address] A Gender: M Mill [employer]: yarelis : 1940 Requested By: NETTA ACOSTA Order Number: [id number] Reading MD: Markus Jose Measurements Intervals [place] Rate: 61 P: 2 AK: 193 QRS: 115 QRSD: 134 T: 13 QT: 430 QTc: 433 Interpretive Statements Sinus rhythm Right bundle branch block Probable anteroseptal infarct, recent Minimal ST elevation, inferior leads Lateral leads are also involved Electronically Signed On 10-31-2024 13:28:39 PDT by Markus Jose Please click the below link to view image of tracing.
[2024-10-30] MEDS: SACUBITRIL-VALSARTAN 24mg/26mg TAB PO SCH (23:59)
[2024-10-31] VITALS (30 sets, daily range): BP systolic 92–138; BP diastolic 40–78; PULSE 59–81; RESP 11–21; TEMP 97.9–98.6; O2SAT 94–98
[2024-10-31 03:58] LABS: Basophils # (auto) 0.1 10 ^3/uL (0-0.2); Basophils % (auto) 0.7 % (0.0-2.0); Eosinophils # (auto) 0.1 10 ^3/uL (0-0.8); Eosinophils % (auto) 1.5 % (0.0-7.0); Hematocrit 38.2 % (41.0-53.0); Lymphocytes # (auto) 2.1 10 ^3/uL (0.4-5.4); Lymphocytes % (auto) 24.4 % (10.0-50.0); Mean Corpuscular Hemoglobin 30.7 pg (28.0-32.0); Mean Corpuscular Hgb Conc. 33.9 g/dL (32.0-36.0); Mean Corpuscular Volume 90.7 fL (80.0-100.0); Monocytes # (auto) 0.7 10 ^3/uL (0-1.3); Monocytes % (auto) 8.7 % (0.0-12.0); Neutrophils # (auto) 5.5 10 ^3/uL (1.6-8.6); Neutrophils % (auto) 64.7 % (37.0-80.0); Nucleated Red Blood Cells % 0.1 %; Platelet Count (auto) 154 10^3/uL (140-450); Red Blood Cells 4.22 10^6/uL (4.5-5.90); Red Cell Distribution Width 14.1 % (11.8-14.3); White Blood Cell 8.5 10^3/uL (4.4-10.8)
[2024-10-31 04:20] LABS: Alanine Aminotransferase 17 U/L (7-40); Alkaline Phosphatase 64 U/L (46-116); Anion Gap 8 (5-15); BUN/Creatinine Ratio 17.9 (10.0-20.0); Blood Urea Nitrogen 17 mg/dL (9-23); Calcium 9.1 mg/dL (8.7-10.4); Carbon Dioxide 25 mmol/L (20-31); Chloride 106 mmol/L (98-107); Potassium 3.9 mmol/L (3.5-5.1); Sodium 139 mmol/L (136-145)
[2024-10-31 04:21] LABS: Albumin 3.7 g/dL (3.2-4.8); Aspartate Aminotransferase 27 U/L (13-40); Bilirubin, Total 0.9 mg/dL (0.2-1.0)
[2024-10-31 04:33] LABS: Glucose 113 mg/dL (74-106); Total Protein 5.7 g/dL (5.7-8.2)
--- NOTE | 2024-10-31 09:19 | DVHPN2 ---
Consult Progress Note Date Seen: Oct 31, 2024 Subjective Patient reports: Feels better Review of Systems: HEENT:Normal, CVS:Normal, CVS:Abnormal, RESPIRATORY:Normal, GI:Normal, :Normal, MSK:Normal, NEURO:Normal Objective vital signs Vital Sign Date Time Temp Pulse Resp B/P (MAP) Pulse Ox O2 Delivery O2 Flow Rate FiO2 10/31/24 06:00 61 13 95/42 (59) 94 10/31/24 04:00 98.6 98.6 10/31/24 04:00 Room Air* 0 21 Total Intake and Output 10/30/24 10/30/24 10/31/24 15:00 23:00 07:00 Intake Total 900 ml 200 ml Output Total 750 ml 1400 ml Balance 150 ml -1200 ml medications Current Medications Medications Dose Ordered Sig/Olu Route Start Time Stop Time Status Last Admin Dose Admin Aspirin 81 mg DAILY PO 10/30/24 10:00 10/30/24 10:31 81 MG Clopidogrel Bisulfate 75 mg DAILY PO 10/30/24 10:00 10/30/24 10:30 75 MG Nitroglycerin 0.4 mg Q5MINP PRN SL 10/29/24 13:45 10/29/24 17:17 0.4 MG Morphine Sulfate 2 mg Q30M PRN IV 10/29/24 13:45 Atorvastatin Calcium 40 mg HS PO 10/29/24 22:00 10/30/24 22:53 40 MG Tamsulosin HCl 0.4 mg QPM PO 10/29/24 18:00 10/30/24 18:22 0.4 MG Acetaminophen 650 mg Q6HP PRN PO 10/29/24 14:00 Ondansetron HCl 4 mg Q6HPRN PRN IV 10/29/24 14:00 Sacubitril/ Valsartan 1 tab BID PO 10/30/24 22:00 10/30/24 23:59 1 TAB Carvedilol 3.125 mg Q12HR PO 10/30/24 10:00 10/30/24 21:24 3.125 MG Examination: GENERAL:Normal, HEENT:Normal, NECK:Normal, LUNGS:Normal, CVS:Normal, ABDOMEN:Normal, MSK:Normal, SKIN:Normal, NEURO:Normal, :Normal laboratory and microbiology Laboratory Tests 10/31/24 03:38 Test 10/31/24 03:38 Range/Units Serum Glucose 113 H 74-106 mg/dL Problem List/Assessment/Plan Problem List/Assessment/Plan Status post PTCA and stenting to the LAD. Acute coronary ischemic event. Status post ST-elevation myocardial infarction. Cardiomyopathy. Dilated left ventricle. Recommendations: Continue with Entresto and Coreg as tolerated. Lipid-lowering therapy. Risk factor modification. Salt restriction. Suggest life vest Before discharge Plan discussed with: Patient Total Time (mins): 15 Date of Service: Oct 31, 2024 Billing Provider: ABEL MAE Sr., MD Cardiology Common Codes: [id number] INP/OBS CARE(Mod) ABEL MAE Sr., MD Oct 31, 2024 09:19
[2024-10-31] MEDS ORDERED: CLOP75TA28 PO (09:58)
[2024-10-31] MEDS ORDERED: ASPI1TAB20 PO ×2 (09:58→14:45)
[2024-10-31] MEDS ORDERED: CARV-214 OR (09:58)
[2024-10-31] MEDS ORDERED: SACU1TAB PO (09:59)
[2024-10-31] MEDS ORDERED: TAMS-35 PO (09:59)
[2024-10-31] MEDS ORDERED: ATOR40TA52 PO (10:00)
--- NOTE | 2024-10-31 10:07 | DVHDS2 ---
Discharge Summary Date of Admission Oct 29, 2024 at 13:40 Date of Discharge: Oct 31, 2024 Admitting Diagnosis Acute myocardial infarction Labs/Diagnostic Data: Laboratory Results Test 10/31/24 03:38 10/29/24 11:31 10/29/24 10:54 White Blood Count 8.5 10^3/uL (4.4-10.8) Red Blood Count 4.22 10^6/uL (4.5-5.90) Hemoglobin 13.0 g/dL (13.5-17.5) Hematocrit 38.2 % (41.0-53.0) Mean Corpuscular Volume 90.7 fL (80.0-100.0) Mean Corpuscular Hemoglobin 30.7 pg (28.0-32.0) Mean Corpuscular Hemoglobin Concent 33.9 g/dL (32.0-36.0) Red Cell Distribution Width 14.1 % (11.8-14.3) Platelet Count 154 10^3/uL (140-450) Mean Platelet Volume 9.3 fL (6.9-10.8) Neutrophils (%) (Auto) 64.7 % (37.0-80.0) Lymphocytes (%) (Auto) 24.4 % (10.0-50.0) Monocytes (%) (Auto) 8.7 % (0.0-12.0) Eosinophils (%) (Auto) 1.5 % (0.0-7.0) Basophils (%) (Auto) 0.7 % (0.0-2.0) Neutrophils # (Auto) 5.5 10 ^3/uL (1.6-8.6) Lymphocytes # (Auto) 2.1 10 ^3/uL (0.4-5.4) Monocytes # (Auto) 0.7 10 ^3/uL (0-1.3) Eosinophils # (Auto) 0.1 10 ^3/uL (0-0.8) Basophils # (Auto) 0.1 10 ^3/uL (0-0.2) Nucleated Red Blood Cells 0.1 % Sodium Level 139 mmol/L (136-145) Potassium Level 3.9 mmol/L (3.5-5.1) Chloride Level 106 mmol/L (98-107) Carbon Dioxide Level 25 mmol/L (20-31) Anion Gap 8 (5-15) Blood Urea Nitrogen 17 mg/dL (9-23) Creatinine 0.95 mg/dL (0.700-1.30) Glomerular Filtration Rate Calc 79 mL/min (>90) BUN/Creatinine Ratio 17.9 (10.0-20.0) Serum Glucose 113 mg/dL (74-106) Calcium Level 9.1 mg/dL (8.7-10.4) Total Bilirubin 0.9 mg/dL (0.2-1.0) Aspartate Amino Transferase (AST) 27 U/L (13-40) Alanine Aminotransferase (ALT) 17 U/L (7-40) Alkaline Phosphatase 64 U/L (46-116) Total Protein 5.7 g/dL (5.7-8.2) Albumin 3.7 g/dL (3.2-4.8) Urine Color Light-yellow (Yellow) Urine Clarity Clear (Clear) Urine pH 5.5 (5.0-9.0) Urine Specific [place] 1.015 (1.001-1.035) Urine Protein Negative (Negative) Urine Ketones Negative (Negative) Urine Blood 1+ /uL (Negative) Urine Nitrite Negative (Negative) Urine Bilirubin Negative (Negative) Urine Urobilinogen Normal mg/dL (Negative) Urine Leukocyte Esterase Negative /uL (Negative) Urine RBC 14 /hpf (0 - 3) Urine Microscopic WBC 3 /HPF (0-3) Urine Squamous Epithelial Cells None seen /hpf (<5) Urine Bacteria None seen /hpf (None Seen) Urine Mucus Few (None Seen) Urine Glucose Normal mg/dL (Normal) Magnesium Level 1.8 mg/dL (1.6-2.6) Troponin I High Sensitivity 2199 ng/L (</=54) B-Type Natriuretic Peptide 84.28 pg/mL (0-100) Triglycerides Level 212 mg/dL (< 150) Cholesterol Level 141 mg/dL (< 200) LDL Cholesterol 55 mg/dL (< 100) HDL Cholesterol 40 mg/dL (40-59) Thyroid Stimulating Hormone (TSH) 2.16 uIU/mL (0.55-4.78) Other Laboratory Tests 10/31/24 03:38 Brief Hx & Hospital Course: HISTORY OF PRESENT ILLNESS: The patient is an 83-year-old gentleman who was admitted after he had initial severe suprapubic pain with difficulty in urination. The patient subsequently developed increasing chest pain. The patient was taken to [facility] and subsequently brought to the Emergency Room. The patient denies any dizziness or syncope. No history of nausea. No history of vomiting. Course of hospitalization: Patient was taken to the cardiac catheterization lab, with findings of disease to his LAD, post previous proximal stent placement. Patient had PTCA and additional placement of two stents. Patient was found to have apical akinesis with new onset of systolic heart failure with ejection fraction approximately 30%. Patient was chest pain has resolved. Chapa catheter will be removed prior to being discharged. Long discussion was made with the patient, cardiology team, as well as patient was family regarding plan of care. Patient will be discharged home with Plavix, aspirin, carvedilol, and Entresto with his dose being decreased by 50%, noted that his blood pressure is on the lower in while in the hospital after this treatment. Remainder of guideline directed medical therapy for acute heart failure can be initiated as an outpatient with recommendations for Farxiga or Jardiance, spironolactone. Patient will also be discharged home with Flomax 0.4 mg p.o. q.h.s.. Patient was will also have a LifeVest prescribed to him which he was instructed to wear for a minimum of 30 days. He was instructed to not lift anything greater than 5 lb over the next two weeks. Patient should not return to work until cleared by Cardiology. He was instructed follow up with his PCP at next available appointment and with Dr. Jose in 1-2 weeks. Patient was agreeable with discharge plan. All questions answered. Physical examination General: Alert and Oriented x3. No acute distress. Well-nourished. Eyes: EOMI. Anicteric. HENT: Moist mucous membranes. Lungs: Clear to auscultation bilaterally. No accessory muscle use. Cardiovascular: Regular rate and rhythm. No murmur. No JVD. Abdomen: Soft, non-tender and non-distended. No palpable masses. Extremities: No edema. Non-tender. Skin: No rashes or lesions. Warm. Neurologic: No focal neurological deficits. CN II-XII grossly intact, but not individually tested. Psychiatric: Cooperative. Appropriate mood and affect. Total time spent with patient discussing and formulating plan of care: 35 minutes. This medical document was created using an electronic medical record system with [employer] dictation system. Although this document has been carefully reviewed, there may still be some phonetic and typographical errors. These areas are purely typographical due to imperfections of the software programs, and do not reflect any compromise in the patient's medical care. Consults/Reason for consult Cardiology: Acute CA Operations or Procedures 10/29/2024: PTCA and stent placement to LAD Condition at Discharge: Good Final Diagnosis/Problems List STEMI involving LAD Secondary diagnosis: Primary hypertension BPH Dyslipidemia History of CAD Discharge Disposition: Home Discharge Instruct/Medications Diet: Cardiac 2g Na,low cholest Activity: No Restrictions, As Tolerated Activity comment: Do not lift anything greater than 5lbs for 2 weeks Follow Up/Referral: Dr. Jose in 1-2 weeks PCP in 1 week Medications: Plavix 75mg po daily Aspirin 81 mg p.o. daily Entresto 0.5 tablets twice a day Flomax 0.4 mg p.o. q.h.s. Carvedilol 3.125 mg p.o. b.i.d. Refer to medication reconciliation for remainder of medications 36 Discharge Statement: "Patient was advised to return to the ER or call 911 if any headaches, dizziness, shortness of breath, chest pain, abdominal pain, bleeding, fevers, or worsening of medical condition. Patient was counseled about treatment plan, medications, possible side effects, patientverbalized understanding. All questions were answered to the best of my ability. This discharge took greater then 30 minutes in planning, reviewing documentation, counseling the patient, and discussing with other team members." ASSESSMENT ASSESSMENT Assessment STEMI involving LAD Date of Service: Oct 31, 2024 Billing Provider: ELICEO JACKSON NP Common Visit Codes: 09927-BZT/OBS DISCH DAY >30min ELICEO JACKSON NP Oct 31, 2024 10:06
--- NOTE | 2024-10-31 10:22 | DVHPN2 ---
Consult Progress Note Subjective Other Systems: Patient went into atrial flutter on cardiac nurse practitioner while ambulating. Now back in NSR on monitor. Objective vital signs Vital Sign Date Time Temp Pulse Resp B/P (MAP) Pulse Ox O2 Delivery O2 Flow Rate FiO2 10/31/24 10:08 71 108/65 10/31/24 06:00 13 94 10/31/24 04:00 98.6 98.6 10/31/24 04:00 Room Air* 0 21 Total Intake and Output 10/30/24 10/30/24 10/31/24 15:00 23:00 07:00 Intake Total 900 ml 200 ml Output Total 750 ml 1400 ml Balance 150 ml -1200 ml medications Current Medications Medications Dose Ordered Sig/Olu Route Start Time Stop Time Status Last Admin Dose Admin Aspirin 81 mg DAILY PO 10/30/24 10:00 10/31/24 10:08 81 MG Clopidogrel Bisulfate 75 mg DAILY PO 10/30/24 10:00 10/31/24 10:08 75 MG Nitroglycerin 0.4 mg Q5MINP PRN SL 10/29/24 13:45 10/29/24 17:17 0.4 MG Morphine Sulfate 2 mg Q30M PRN IV 10/29/24 13:45 Atorvastatin Calcium 40 mg HS PO 10/29/24 22:00 10/30/24 22:53 40 MG Tamsulosin HCl 0.4 mg QPM PO 10/29/24 18:00 10/30/24 18:22 0.4 MG Acetaminophen 650 mg Q6HP PRN PO 10/29/24 14:00 Ondansetron HCl 4 mg Q6HPRN PRN IV 10/29/24 14:00 Sacubitril/ Valsartan 1 tab BID PO 10/30/24 22:00 10/30/24 23:59 1 TAB Carvedilol 3.125 mg Q12HR PO 10/30/24 10:00 10/31/24 10:08 3.125 MG Sacubitril/ Valsartan 0.5 tab BID PO 10/31/24 10:15 UNV Examination: GENERAL:Normal, LUNGS:Normal, CVS:Normal, NEURO:Normal laboratory and microbiology Laboratory Tests 10/31/24 03:38 Test 10/31/24 03:38 Range/Units Serum Glucose 113 H 74-106 mg/dL Problem List/Assessment/Plan Problem List/Assessment/Plan Acute ST-elevation myocardial infarction s/p PTCA x 1 MAURIZIO to LAD Atrial flutter, newly diagnosed Coronary artery disease with history of 2 MAURIZIO (on ASA) Acute on chronic HFrEF, NYHA class III, newly diagnosed Hypertension Dyslipidemia Moderate tricuspid regurgitation BPH Plan/recommendations (Dr. Jose): Case discussed with . Transthoracic echocardiogram reveals EF approximately 30%.Continue guideline directed medical therapy for CHF as blood pressure permits. The patient came in with acute ST segment elevation myocardial infarction and was emergently taken to the photographic laboratory supervisor and underwent a coronary angiogram with left heart catheterization with successful PTCA and stenting of the LAD on 10/29/24. Continue with dual antiplatelet therapy and lipid-lowering agent. The patient presents with new onset atrial flutter today as well as transient pauses, lasting as long as 1.6 seconds. We will initiate therapeutic lovenox while in patient. Continue to monitor for any ECG changes such as arrhythmias or high degree AV blocks. Initiate NOAC therapy prior to discharge. The patient will need to be on triple therapy for one full month (Aspirin, Plavix, Eliquis). After one full month, Aspirin may be discontinued and the patient will need to remain on Plavix and Eliquis. Social service consult for [employer]. Thank you for allowing us to care for this patient. Please call with any questions or concerns. Critical care time spent: 39 minutes. This medical document was created using an electronic medical record system with voice recognition software and computerized dictation system. Although this document has been carefully reviewed, there might still be some phonetic and typographical errors. Occasional wrong-word or ``sound-alike substitutions may have occurred due to the inherent limitations of voice recognition software. These areas are purely typographical due to imperfections of the software programs and do not reflect any compromise in the patient's medical care. Please read the chart carefully and recognize, using context, where these substitutions have occurred. Plan discussed with: Patient Date of Service: Oct 31, 2024 Billing Provider: KATHRYN HORVATH Common Visit Codes: [id number] CARE 30-74 MIN KATHRYN HORVATH Oct 31, 2024 10:22
[2024-10-31] MEDS: SACUBITRIL-VALSARTAN 24mg/26mg TAB PO SCH (11:21)
[2024-10-31] MEDS ORDERED: APIX2.5T PO (14:45)
[2024-10-31] MEDS: ENOXAPARIN SOD 60 MG/0.6 ML SYRINGE SC ONE (15:58)
[2024-10-31] MEDS: TAMSULOSIN HYDROCHLORIDE 0.4 MG CAP PO ONE (16:00)
--- NOTE | 2024-10-31 18:29 | DVH ---
US KIDNEY INDICATION: scan prostate, bladder, urinary retention TECHNIQUE: Multiple real-time sonographic images of the kidneys and bladder were obtained. COMPARISON: None FINDINGS: The right kidney measures 8.5 cm in length, which is normal in size. There is normal echogenicity of the right kidney. No hydronephrosis.. There is a 2.4 x 1.8 by 1.9 cm anechoic mass in the cortex of the right kidney consistent with a renal cyst. The left kidney measures 10.1 cm in length, which is normal in size. There is normal echogenicity of the left kidney. No hydronephrosis. No large intraluminal masses are seen in the bladder. Bladder wall measures 1.8 mm. Patient voided prior to exam. Following voiding, the bladder volume residual measures 457 sean meters cc. Prostate has 42 mL volume. IMPRESSION: 1. Right kidney measures 8.5 cm long. Left kidney measures 10.1 cm long. 2. Patient voided prior to examination and There is 457 mL of urine. 3. Prostate volume is 42 mL. 4. There is a 2.4 x 1.8 x 1.9 cm cortical cyst in the right kidney.
[2024-10-31] MEDS: FINASTERIDE 5 MG TAB PO ONE (19:51)
[2024-10-31] MEDS: ENOXAPARIN SOD 60 MG/0.6 ML SYRINGE SC SCH (21:15)
--- NOTE | 2024-10-31 23:52 | DVHPN2 ---
Consult Progress Note Subjective Other Systems: Patient was seen and evaluated in follow up in the ICU. Patient went into atrial flutter on shelter monitor while ambulating. Now back in NSR on monitor. Objective vital signs Vital Sign Date Time Temp Pulse Resp B/P (MAP) Pulse Ox O2 Delivery O2 Flow Rate FiO2 10/31/24 22:22 65 18 92/40 (57) 96 10/31/24 20:30 Room Air* 0 21 10/31/24 20:00 98.0 98.0 Total Intake and Output 10/30/24 10/30/24 10/31/24 15:00 23:00 07:00 Intake Total 900 ml 200 ml Output Total 750 ml 1400 ml Balance 150 ml -1200 ml medications Current Medications Medications Dose Ordered Sig/Olu Route Start Time Stop Time Status Last Admin Dose Admin Aspirin 81 mg DAILY PO 10/30/24 10:00 10/31/24 10:08 81 MG Clopidogrel Bisulfate 75 mg DAILY PO 10/30/24 10:00 10/31/24 10:08 75 MG Nitroglycerin 0.4 mg Q5MINP PRN SL 10/29/24 13:45 10/29/24 17:17 0.4 MG Morphine Sulfate 2 mg Q30M PRN IV 10/29/24 13:45 Atorvastatin Calcium 40 mg HS PO 10/29/24 22:00 10/31/24 21:14 40 MG Tamsulosin HCl 0.4 mg QPM PO 10/29/24 18:00 10/31/24 17:54 0.4 MG Acetaminophen 650 mg Q6HP PRN PO 10/29/24 14:00 Ondansetron HCl 4 mg Q6HPRN PRN IV 10/29/24 14:00 Carvedilol 3.125 mg Q12HR PO 10/30/24 10:00 10/31/24 21:16 3.125 MG Sacubitril/ Valsartan 0.5 tab BID PO 10/31/24 10:15 10/31/24 11:21 0.5 TAB Enoxaparin Sodium 60 mg Q12HR SC 10/31/24 22:00 10/31/24 21:15 60 MG Examination: GENERAL:Normal, HEENT:Normal, NECK:Normal, LUNGS:Normal, CVS:Normal, ABDOMEN:Normal, SKIN:Normal, NEURO:Normal laboratory and microbiology Laboratory Tests 10/31/24 03:38 Test 10/31/24 03:38 Range/Units Serum Glucose 113 H 74-106 mg/dL Problem List/Assessment/Plan Problem List/Assessment/Plan Problem List/Assessment/Plan Acute ST-elevation myocardial infarction s/p PTCA x 1 MAURIZOI to LAD. Atrial flutter, newly diagnosed . Coronary artery disease with history of 2 MAURIZIO (on ASA). Acute on chronic HFrEF, NYHA class III, newly diagnosed. Hypertension. Dyslipidemia. Moderate tricuspid regurgitation. BPH. Plan/recommendations Continued all current supportive medical care. Patient has been seen by Sierra Ramsey NP on my behalf, her and I discussed the plan with the patient. Transthoracic echocardiogram reveals EF approximately 30%. Continue guideline directed medical therapy for CHF as blood pressure permits. The patient came in with acute ST segment elevation myocardial infarction and was emergently taken to the [facility] and underwent a coronary angiogram with left heart catheterization with successful PTCA and stenting of the LAD on 10/29/24. Continue with dual antiplatelet therapy and lipid-lowering agent. The patient presents with new onset atrial flutter today as well as transient pauses, lasting as long as 1.6 seconds. We will initiate therapeutic lovenox while in patient. Continue to monitor for any ECG changes such as arrhythmias or high degree AV blocks. Initiate NOAC therapy prior to discharge. The patient will need to be on triple therapy for one full month (Aspirin, Plavix, Eliquis). After one full month, Aspirin may be discontinued and the patient will need to remain on Plavix and Eliquis. Social service consult for DAVIDsTEAt. Additional plan as per the hospital course. Plan discussed with: Patient Date of Service: Oct 31, 2024 Billing Provider: ELKIN DAVIS MD Cardiology Common Codes: 55916-[id number] CARE 30-74 MIN ELKIN DAVIS MD Oct 31, 2024 22:46
[2024-11-01] VITALS (17 sets, daily range): BP systolic 90–139; BP diastolic 39–74; PULSE 57–74; RESP 12–24; TEMP 98–98.5; O2SAT 94–98
[2024-11-01] MEDS ORDERED: FINA5TAB4 PO (08:57)
--- NOTE | 2024-11-01 09:00 | DVHPN2 ---
Subjective doing well. will continue discharge plan. will add finasteride to plan. otherwise no significant changes. no further afib/aflut/sinus pauses overnight. patient asymtpmatic. Reviewed: H&P Changes from previous H/P or p: No Changes General: Per HPI Objective Vitals Vital Signs Date Time Temp Pulse Resp B/P (MAP) Pulse Ox O2 Delivery O2 Flow Rate FiO2 11/01/24 08:24 16 95 Room Air* 0 21 11/01/24 08:00 69 11/01/24 08:00 98.1 128/62 (84) 98.1 Intake/Output Intake and Output 11/01/24 06:59 Intake Total 780 ml Output Total 1075 ml Balance -295 ml Intake Oral 780 ml Output Urine Total 1075 ml Lungs: Clear to auscultation, Normal air movement, Other Cardiovascular: Regular rate, Normal S1, Normal S2, No murmurs, Gallops, Rubs, Other Abdomen: Normal bowel sounds, Soft, No tenderness, No hepatospenomegaly, No masses, Other Medications Current Medications Medications Dose Ordered Sig/Olu Route Start Time Stop Time Status Last Admin Dose Admin Aspirin 81 mg DAILY PO 10/30/24 10:00 10/31/24 10:08 81 MG Clopidogrel Bisulfate 75 mg DAILY PO 10/30/24 10:00 10/31/24 10:08 75 MG Nitroglycerin 0.4 mg Q5MINP PRN SL 10/29/24 13:45 10/29/24 17:17 0.4 MG Morphine Sulfate 2 mg Q30M PRN IV 10/29/24 13:45 Atorvastatin Calcium 40 mg HS PO 10/29/24 22:00 10/31/24 21:14 40 MG Tamsulosin HCl 0.4 mg QPM PO 10/29/24 18:00 10/31/24 17:54 0.4 MG Acetaminophen 650 mg Q6HP PRN PO 10/29/24 14:00 Ondansetron HCl 4 mg Q6HPRN PRN IV 10/29/24 14:00 Carvedilol 3.125 mg Q12HR PO 10/30/24 10:00 10/31/24 21:16 3.125 MG Sacubitril/ Valsartan 0.5 tab BID PO 10/31/24 10:15 10/31/24 11:21 0.5 TAB Enoxaparin Sodium 60 mg Q12HR SC 10/31/24 22:00 10/31/24 21:15 60 MG Laboratory Results Laboratory Tests 10/31/24 03:38 Urinalysis Test 10/29/24 11:31 Urine Color Light-yellow (Yellow) Urine Clarity Clear (Clear) Urine pH 5.5 (5.0-9.0) Urine Specific [place] 1.015 (1.001-1.035) Urine Protein Negative (Negative) Urine Ketones Negative (Negative) Urine Blood 1+ /uL (Negative) H Urine Nitrite Negative (Negative) Urine Bilirubin Negative (Negative) Urine Urobilinogen Normal mg/dL (Negative) Urine Leukocyte Esterase Negative /uL (Negative) Urine RBC 14 /hpf (0 - 3) Urine Microscopic WBC 3 /HPF (0-3) Urine Squamous Epithelial Cells None seen /hpf (<5) Urine Bacteria None seen /hpf (None Seen) Urine Mucus Few (None Seen) Urine Glucose Normal mg/dL (Normal) Microbiology Microbiology Date/Time Source Procedure Growth Status 10/29/24 14:50 Nose MRSA Screen - Final Complete Labs and/or images reviewed: Labs reviewed by me, Image(s) reviewed by me Assessment/Plan Assessment/Plan continue discharge plan. will add finasteride to plan. otherwise no significant changes. no further afib/aflut/sinus pauses overnight. patient asymtpmatic. PVR done w/o urine gonzalez, amount is 77cc. ok to continue and dc w/o gonzalez rEF, lifevest delivered and fitted. ambulating w/o difficulty with PT. stable for dc. added finasteride will need outpt f/u with pcp, card, urology. Plan discussed with: Patient, Daughter My Orders Orders - REGULO HUMPHREYS MD Procedure Category Date Status Time Polyethylene Glycol PHA 11/01/24 Logged 17g Powder (Miralax 08:45 Docusate Sodium PHA 11/01/24 Logged Capsule (Colace 08:45 Date of Service: Nov 01, 2024 Billing Provider: REGULO HUMPHREYS MD Common Visit Codes: [id number] INP/OBS CARE(MOD) REGULO HUMPHREYS MD Nov 01, 2024 09:00
[2024-11-01] MEDS: DOCUSATE SOD 100 MG CAP PO ONE (09:46)
[2024-11-01] MEDS: POLYETHYLENE GLYCOL 17 GM PWDR PO ONE (09:46)
--- NOTE | 2024-11-01 18:26 | DVHPN2 ---
Progress Note - Dictate Date Seen: Nov 01, 2024 Medical Necessity Reason Pt with a Central, PICC or Fol: Yes The following are medically ne: Gonzalez Catheter Reason for gonzalez catheter: Strict I&O Subjective Patient was seen and evaluated in follow up in the ICU. No overnight events. Patient denies any cardiac symptoms. Patient is cardiac stable for discharge. vital signs Vital Sign Date Time Temp Pulse Resp B/P (MAP) Pulse Ox O2 Delivery O2 Flow Rate FiO2 11/01/24 10:01 73 12 104/57 (73) 96 11/01/24 09:40 98.1 11/01/24 08:24 Room Air* 0 21 Total Intake and Output 10/31/24 10/31/24 11/01/24 15:00 23:00 07:00 Intake Total 720 ml 60 ml Output Total 575 ml 500 ml Balance 145 ml -440 ml objective Examination: GENERAL:Normal, HEENT:Normal, NECK:Normal, LUNGS:Normal, CVS:Normal, ABDOMEN:Normal, SKIN:Normal, NEURO:Normal laboratory and microbiology Laboratory Tests 10/31/24 03:38 Test 10/31/24 03:38 Range/Units Serum Glucose 113 H 74-106 mg/dL Problem List Acute ST-elevation myocardial infarction s/p PTCA x 1 MAURIZIO to LAD. Atrial flutter, newly diagnosed . Coronary artery disease with history of 2 MAURIZIO (on ASA). Acute on chronic HFrEF, NYHA class III, newly diagnosed. Hypertension. Dyslipidemia. Moderate tricuspid regurgitation. BPH. Assessment/Plan Continued all current supportive medical care. DVT prophylactics. Entresto. Coreg. Aspirin, Lipitor, Plavix. Morphine for pain management. Additional plan as per the hospital course. Critical care time of 45 minutes provided to include time spent evaluation of patient at bedside, when appropriate patient/family education for diagnosis, treatment plan, review of pertinent medical information and discussion of care with specialty providers and PCP. Plan discussed with: Patient ELKIN DAVIS MD Nov 01, 2024 14:28
--- NOTE | 2024-11-01 23:18 | DVHINCON2 ---
Date of service: Nov 01, 2024 Referring Physician Emilio Gomez NP Reason for Consultation Pulmonary hypertension. History of Present Illness An 84-year-old gentleman with PMHx of coronary artery disease, status post stent, hypertension, hyperlipidemia and BPH who presented to ED on 10/29/24 with a chief complaint of chest pain since 7 to 8 AM on morning of presentation. Chest pain was described as substernal, nonradiating, pressure-like, intermittent, nonprovoked, and rated as 7/10. He also c/o urinary hesitancy, retention, and dribbling causing pelvic discomfort. He underwent a 12 lead electrocardiogram revealing an acute anterior wall ST-elevation myocardial infarction with reciprocal inferior ST changes for which Code STEMI was activated by Dr. Jose. Patient was admitted for further care and pulmonary consultation is requested for evaluation and management due to pulmonary hypertension. Review of Systems: 14-point review of systems negative unless otherwise noted above. Past Medical History: Coronary artery disease, status post stent. Hypertension, hyperlipidemia and BPH. Past Surgical History: Cardiac stent Medications: Reviewed. Allergies: No known drug allergies. Family History: Stroke. Social History: Nonsmoker. No alcohol or illicit drug use. Family History: FH: stroke G8 MOTHER G8 FATHER Allergies: Coded Allergies: No Known Drug Allergy (Verified Allergy, Unknown, 10/29/24) Home Meds Active Scripts Finasteride (Finasteride) 5 Mg Tab, 1 TAB PO DAILY, #30 TAB 3 Refills Prov:REGULO HUMPHREYS MD 11/01/24 Apixaban Base (ELIQUIS) 2.5 Mg Tab, 2.5 MG PO BID for 30 Days, #60 TAB 3 Refills Prov:EMILIO GOMEZ NP 10/31/24 Aspirin (Aspir-81) 81 Mg Tab, 1 TAB PO DAILY for 30 Days, #30 TAB 0 Refills Stop after 30 days, patient will be on eliquis and plavix Prov:EMILIO GOMEZ NP 10/31/24 Atorvastatin Calcium (ATORVASTATIN CALCIUM) 40 Mg Tab, 1 TAB PO QPM, #90 TAB 3 Refills Prov:EMILIO GOMEZ NP 10/31/24 Tamsulosin Hcl (Flomax) 0.4 Mg Cap, 1 CAP PO DAILY, #30 CAP 11 Refills Prov:EMILIO GOMEZ NP 10/31/24 Sacubitril-Valsartan (Entresto 24-26 mg) 1 Tab Tab, 0.5 TAB PO BID for 30 Days, #30 TAB 3 Refills Prov:EMILIO GOMEZ COMPLIANCE MONITOR 10/31/24 Carvedilol (COREG) 3.125 Mg Tab, 3.125 MG OR BID for 30 Days, #60 TAB Prov:EMILIO GOMEZ COMPLIANCE MONITOR 10/31/24 Clopidogrel Bisulfate (Plavix) 75 Mg Tab, 1 TAB PO DAILY for 30 Days, #30 TAB 3 Refills Prov:EMILIO GOMEZ COMPLIANCE MONITOR 10/31/24 Vital Signs Vital Signs Date Time Temp Pulse Resp B/P (MAP) Pulse Ox O2 Delivery O2 Flow Rate FiO2 11/01/24 10:01 73 12 104/57 (73) 96 11/01/24 09:40 98.1 11/01/24 08:24 Room Air* 0 21 Physical Exam Gen.: Patient lying in bed in no apparent distress. Breathing on room air. Head: Normocephalic, atraumatic. Eyes: EOMI/PERRLA. Ears: Normal hearing. Normal anatomy. Neck/trachea: Trachea midline, supple. Nose: Normal external anatomy. Mouth: Moist mucous membranes. Chest: Decreased air entry bilaterally. No wheezing or rhonchi. Cardiovascular: Positive S1, positive S2. Regular rate and rhythm. Abdomen: Positive bowel sounds in all 4 quadrants. Soft, non-tender, non- distended. : Deferred. Rectal: Deferred. Skin: Warm, dry. Intact. Extremities: 2+ radial pulses bilaterally. No lower extremity edema. Neuro: Awake, alert, oriented x3. No gross motor or sensory deficits. Cranial nerves II through XII intact. Gait not assessed. Labs/Diagnostic Data Labs Test 10/31/24 19:09 10/31/24 03:38 10/29/24 11:31 10/29/24 10:54 Range/Units Prostate Specific Antigen 16.74 H 0.0-4.0 ng/mL White Blood Count 8.5 4.4-10.8 10^3/uL Red Blood Count 4.22 L 4.5-5.90 10^6/uL Hemoglobin 13.0 #L 13.5-17.5 g/dL Hematocrit 38.2 #L 41.0-53.0 % Mean Corpuscular Volume 90.7 80.0-100.0 fL Mean Corpuscular Hemoglobin 30.7 28.0-32.0 pg Mean Corpuscular Hemoglobin Concent 33.9 32.0-36.0 g/dL Red Cell Distribution Width 14.1 11.8-14.3 % Platelet Count 154 140-450 10^3/uL Mean Platelet Volume 9.3 6.9-10.8 fL Neutrophils (%) (Auto) 64.7 37.0-80.0 % Lymphocytes (%) (Auto) 24.4 10.0-50.0 % Monocytes (%) (Auto) 8.7 0.0-12.0 % Eosinophils (%) (Auto) 1.5 0.0-7.0 % Basophils (%) (Auto) 0.7 0.0-2.0 % Neutrophils # (Auto) 5.5 1.6-8.6 10 ^3/uL Lymphocytes # (Auto) 2.1 0.4-5.4 10 ^3/uL Monocytes # (Auto) 0.7 0-1.3 10 ^3/uL Eosinophils # (Auto) 0.1 0-0.8 10 ^3/uL Basophils # (Auto) 0.1 0-0.2 10 ^3/uL Nucleated Red Blood Cells 0.1 % Sodium Level 139 136-145 mmol/L Potassium Level 3.9 3.5-5.1 mmol/L Chloride Level 106 98-107 mmol/L Carbon Dioxide Level 25 20-31 mmol/L Anion Gap 8 5-15 Blood Urea Nitrogen 17 9-23 mg/dL Creatinine 0.95 0.700-1.30 mg/dL Glomerular Filtration Rate Calc 79 >90 mL/min BUN/Creatinine Ratio 17.9 10.0-20.0 Serum Glucose 113 H 74-106 mg/dL Calcium Level 9.1 8.7-10.4 mg/dL Total Bilirubin 0.9 0.2-1.0 mg/dL Aspartate Amino Transferase (AST) 27 13-40 U/L Alanine Aminotransferase (ALT) 17 7-40 U/L Alkaline Phosphatase 64 46-116 U/L Total Protein 5.7 5.7-8.2 g/dL Albumin 3.7 3.2-4.8 g/dL Urine Color Light-yellow Yellow Urine Clarity Clear Clear Urine pH 5.5 5.0-9.0 Urine Specific [place] 1.015 1.001-1.035 Urine Protein Negative Negative Urine Ketones Negative Negative Urine Blood 1+ H Negative /uL Urine Nitrite Negative Negative Urine Bilirubin Negative Negative Urine Urobilinogen Normal Negative mg/dL Urine Leukocyte Esterase Negative Negative /uL Urine RBC 14 0 - 3 /hpf Urine Microscopic WBC 3 0-3 /HPF Urine Squamous Epithelial Cells None seen <5 /hpf Urine Bacteria None seen None Seen /hpf Urine Mucus Few None Seen Urine Glucose Normal Normal mg/dL Magnesium Level 1.8 1.6-2.6 mg/dL Troponin I High Sensitivity 2199 *H </=54 ng/L B-Type Natriuretic Peptide 84.28 0-100 pg/mL Triglycerides Level 212 H < 150 mg/dL Cholesterol Level 141 < 200 mg/dL LDL Cholesterol 55 < 100 mg/dL HDL Cholesterol 40 40-59 mg/dL Thyroid Stimulating Hormone (TSH) 2.16 0.55-4.78 uIU/mL Microbiology Date/Time Source Procedure Growth Status 11/01/24 09:54 Nose MRSA Screen - Final Complete Assessment Impression: ST elevation myocardial infarction involving NAD Hypertension Benign prostatic hypertrophy Coronary artery disease Hyperlipidemia Pulmonary hypertensin, RVSP 43 mmHg Plan: Supplemental oxygen PRN Titrate to keep O2 sats above 92%. CXR reviewed, demonstrates no acute opacities, pleural effusion or pneumothorax Echo reviewed Cardiology recommendations appreciated Continue statin Continue beta mundo Monitor renal function. Monitor electrolytes. Supplement as necessary. Monitor ins and outs. DVT prophylaxis - therapeutic Lovenox. Prognosis: Poor given patient's multiple co-morbidities. Rest of plan per hospitalist and other consultants. Thank you, RE Gomez, for allowing me to participate in this patient's care. Further recommendations will depend on the patient's clinical course. Please do not hesitate to contact me if you have any questions or concerns. This medical document was created using an electronic medical record system with [employer] system. Although these documentations are being carefully reviewed, there may still be some phonetic and typographical changes. The errors are purely typographical, due to imperfection on the software program, and do not reflect any compromise in the patient's medical care. Plan discussed with: Other (RN/RE Gomez/) MYNOR FORD MD Nov 01, 2024 23:18
--- NOTE | 2024-11-03 07:46 | ECG ---
[facility] Test Date: 2024-10-31 Test Time: 10:40:34 Pat Name: FINN STORY Department: icu Room: [address] [place] [address] A Gender: M Express Clerk: at : 1940 Requested By: ELICEO JACKSON Order Number: [id number] Reading MD: Measurements Intervals [place] Rate: 70 P: 15 TX: 204 QRS: 159 QRSD: 133 T: 196 QT: 466 QTc: 503 Interpretive Statements Sinus rhythm RBBB and LPFB Probable anterior infarct, age indeterminate Lateral leads are also involved Baseline wander in lead(s) V2 Please click the below link to view image of tracing.
== END 2024-11-01 14:13 | disposition home or self-care (01) | DRG 321 ==
LOC: ER 10:46 → OVERFLOW 13:40 → ICU WEST 14:50
PROVIDERS: ADMIT Student in an Organized Health Care Education/Training Program; ATTEND Student in an Organized Health Care Education/Training Program
PROC: 027035Z Dilation of Coronary Artery, One Artery with Two Drug-eluting Intraluminal Devices, Percutaneous Approach (ICD-10-PCS; principal; 2024-10-29)
PROC: B240ZZ3 Ultrasonography of Single Coronary Artery, Intravascular (ICD-10-PCS; 2024-10-29)
PROC: 4A023N7 Measurement of Cardiac Sampling and Pressure, Left Heart, Percutaneous Approach (ICD-10-PCS; 2024-10-29)
PROC: B211YZZ Fluoroscopy of Multiple Coronary Arteries using Other Contrast (ICD-10-PCS; 2024-10-29)
PROC: B215YZZ Fluoroscopy of Left Heart using Other Contrast (ICD-10-PCS; 2024-10-29)
DX: I21.09 ST elevation (STEMI) myocardial infarction involving other coronary artery of anterior wall (principal); I50.21 Acute systolic (congestive) heart failure; R57.0 Cardiogenic shock; I48.92 Unspecified atrial flutter; E78.5 Hyperlipidemia, unspecified; I25.10 Atherosclerotic heart disease of native coronary artery without angina pectoris; I21.02 ST elevation (STEMI) myocardial infarction involving left anterior descending coronary artery; I48.0 Paroxysmal atrial fibrillation; I27.20 Pulmonary hypertension, unspecified; N40.1 Benign prostatic hyperplasia with lower urinary tract symptoms; R33.8 Other retention of urine; I11.0 Hypertensive heart disease with heart failure; I07.1 Rheumatic tricuspid insufficiency; Z82.3 Family history of stroke; Z79.82 Long term (current) use of aspirin; Z79.899 Other long term (current) drug therapy
CPT/HCPCS: 36415; 71045; 76775; 80048; 80053; 80061; 81001; 83735; 83880; 84153; 84443; 84484; 85025; 87081; 92941; 92978; 93005; 93306; 93458; 97110; 97116; 97163; 97530; 99152; 99291; C1874; C1887; G0378; J1885; J2250; Q9967

== ENCOUNTER 2025-07-01 15:07 | Inpatient (IN) | payer MEDICARE, OTHER ==
[~2025-07-01] VITALS: Ht 165.1 cm; Wt 56.0 kg
[2025-07-01] VITALS (11 sets, daily range): BP systolic 83–106; BP diastolic 42–60; PULSE 67–78; RESP 11–17; TEMP 97.8–97.9; O2SAT 94–97
[~2025-07-01 15:07] MED LIST: APIX2.5T PO; ASPI1TAB20 PO; ATOR40TA52 PO; CARV-214 OR; CLOP75TA28 PO; FINA5TAB4 PO; SACU1TAB PO; TAMS-35 PO
[2025-07-01 15:22] LABS: Hematocrit 45.0 % (41.0-53.0); Hemoglobin 15.1 g/dL (13.5-17.5); Mean Corpuscular Hemoglobin 29.7 pg (28.0-32.0); Mean Corpuscular Volume 88.8 fL (80.0-100.0); Nucleated Red Blood Cells % 0.0 %
[2025-07-01 15:25] LABS: Chloride 103 mmol/L (98-107); Potassium 4.3 mmol/L (3.5-5.1); Sodium 140 mmol/L (136-145)
[2025-07-01 15:26] LABS: Anion Gap 9 (5-15); Carbon Dioxide 28 mmol/L (20-31)
[2025-07-01 15:27] LABS: Calcium 9.5 mg/dL (8.7-10.4)
[2025-07-01] MEDS: LIDOCAINE 2% TOPICAL JELLY 5 ML URJT TOP ONE (15:30)
[2025-07-01 15:32] LABS: BUN/Creatinine Ratio 12.3 (10.0-20.0); Blood Urea Nitrogen 10 mg/dL (9-23)
[2025-07-01 15:35] LABS: Glucose 132 mg/dL (74-106)
--- NOTE | 2025-07-01 15:48 | ED.PDOC ---
General HPI Comments HPI: Initial Vitals BP: HR: RR: O2: Temp: Past Medical History: Past Surgical History: Social History: Medications: Allergies: Jaciel: HPI: Poor Historian. 84-year-old male brought in by ambulance from [facility] for evaluation acute urinary retention that started 1:00 a.m. in the morning. Patient is star jess developing some chest discomfort hour and half prior to arrival. He said he had STEMI that was triggered in the past by discomfort from acute urinary retention. Pain scale is 9/10. Pain is constant nonradiating. Patient is a [facility] patient. Per EMS, pre-hospital course vital signs were stable. Patient received a dose of aspirin but no nitroglycerin. Past Medical History: BPH, coronary artery disease, hypertension, lymphedema on Eliquis. Past Surgical History: Coronary artery disease stenting. Allergies to baclofen REVIEW OF SYSTEMS: CONSTITUTIONAL: Denies acute: fever, diaphoresis, chills, generalized weakness. HEAD: Denies acute: headache, photophobia Eyes: Denies acute: Double vision, vision loss, eye pain, eye discharge. EARS: Denies acute: tinnitus, hearing loss, ear discharge, ear pain, THROAT: Denies acute: sore throat, swelling, difficulty swallowing , pain with swallowing, change in voice. NECK: Denies acute: neck pain, neck swelling, stiff neck. HEART: Denies acute : palpitations, LUNGS: Denies acute: SOB, wheezing, cough, hemoptysis ABDOMEN: Denies acute: Nausea, Vomiting, diarrhea, melena , hematemesis, hematochezia SKIN: Denies acute: rash, redness, lesions, itchiness. EXTREMITIES: Denies acute: calf pain, numbness, tingling, weakness, denies pain in extremity. Denies acute: Low back pain. Neuro: Denies acute: focal neurological deficit, motor or sensory focal neurological deficit, tremors, seizure like activity, confusion, dizziness, change in mental status, loss of bowel or bladder function, cauda equina like symptoms. : Denies acute: dysuria, hematuria, flank pain, increase in urinary frequency. PSYCH: Denies acute: hallucination, suicidal ideation, homicidal ideation. PHYSICAL EXAM: General: -----[id number]---acute distress, awake and alert. Head: normocephalic, atraumatic. No raccoon's eyes, no lock sign. Neck: supple, trachea is midline, no swelling. Throat: Normal phonation. Eyes:, no erythema, no purulent discharge, no proptosis, no icterus. Heart: regular rate, regular rhythm, no significant murmur appreciated. Lungs: no apparent respiratory distress, Able to speak in full sentences. No wheezing, no rhonchi, no crackles. No stridors Clear to auscultation bilaterally. Abdomen: Lower abdominal tender to palpation, slightly distended, soft, no guarding, no rebound, + bowel sounds. Neuro: Awake, Alert, oriented to name, self, situation, follows commands GCS=15. Speech is normal. Skin: no petechia, no purpura, no cyanosis, non-pale, not jaundice. Lower extremities: --no - Pitting edema no deformity, no focal swelling, no calf TTP. Makes eye contact. moves all four extremities. Face: no apparent facial droop. ED COURSE: DISCLAIMER: This medical document was created using an electronic medical record system with voice recognition software and computerized dictation system. Although this document has been carefully reviewed, there might still be some phonetic and typographical errors. Occasional wrong-word or "sound-alike" substitutions may have occurred due to the inherent limitations of voice recognition software. These areas are purely typographical due to imperfections of the software programs and do not reflect any compromise in the patient's medical care. Please read the chart carefully and recognize, using context, where these substitutions have occurred. Chief Complaint: Chest Pain Time Seen by MD: 15:08 Primary Care Provider: UMER Reviewed notes: Allergies Allergies: Coded Allergies: Baclofen (Verified Allergy, Unknown, 07/01/25) No Known Drug Allergy (Verified Allergy, Unknown, 10/29/24) Home Meds Active Scripts Finasteride (Finasteride) 5 Mg Tab, 1 TAB PO DAILY, #30 TAB 3 Refills Prov:REGULO HUMPHREYS MD 11/01/24 Apixaban Base (ELIQUIS) 2.5 Mg Tab, 2.5 MG PO BID for 30 Days, #60 TAB 3 Refills Prov:ELICEO JACKSON NP 10/31/24 Aspirin (Aspir-81) 81 Mg Tab, 1 TAB PO DAILY for 30 Days, #30 TAB 0 Refills Stop after 30 days, patient will be on eliquis and plavix Prov:ELICEO JACKSON MILLING MACHINE OPERATOR 10/31/24 Atorvastatin Calcium (ATORVASTATIN CALCIUM) 40 Mg Tab, 1 TAB PO QPM, #90 TAB 3 Refills Prov:ELICEO JACKSON MILLING MACHINE OPERATOR 10/31/24 Tamsulosin Hcl (Flomax) 0.4 Mg Cap, 1 CAP PO DAILY, #30 CAP 11 Refills Prov:ELICEO JACKSON MILLING MACHINE OPERATOR 10/31/24 Sacubitril-Valsartan (Entresto 24-26 mg) 1 Tab Tab, 0.5 TAB PO BID for 30 Days, #30 TAB 3 Refills Prov:ELICEO JACKSON MILLING MACHINE OPERATOR 10/31/24 Carvedilol (COREG) 3.125 Mg Tab, 3.125 MG OR BID for 30 Days, #60 TAB Prov:ELICEO JACKSON MILLING MACHINE OPERATOR 10/31/24 Clopidogrel Bisulfate (Plavix) 75 Mg Tab, 1 TAB PO DAILY for 30 Days, #30 TAB 3 Refills Prov:RENETTAFENTON MILLING MACHINE OPERATOR 10/31/24 Information Source: Patient, Emergency Med Personnel Mode of Arrival: EMS Past Medical History PAST MEDICAL HISTORY: CAD, High Lipids, HTN, MD Family History Family History: Family hx of stroke Social History Smoker: Non-Smoker Alcohol: Denies ETOH Use Drugs: Denies Drug Use Lives In: Home X-Ray, Labs, Meds, VS Vital Signs Date Time Temp Pulse Resp B/P (MAP) Pulse Ox O2 Delivery O2 Flow Rate FiO2 07/01/25 16:34 72 07/01/25 15:59 76 07/01/25 15:57 97.9 75 15 90/59 (69) 96 97.9 07/01/25 15:35 77 07/01/25 15:14 75 15 96 Room Air* 0 21 07/01/25 15:11 97.8 71 16 170/96 97 97.8 Lab Test 07/01/25 16:07 07/01/25 15:32 07/01/25 15:09 Range/Units Troponin I High Sensitivity 2213 *H 1569 *H </=54 ng/L Urine Color Light-yellow Yellow Urine Clarity Clear Clear Urine pH 6.5 5.0-9.0 Urine Specific [place] 1.013 1.001-1.035 Urine Protein Negative Negative Urine Ketones Trace Negative Urine Blood Trace H Negative /uL Urine Nitrite Negative Negative Urine Bilirubin Negative Negative Urine Urobilinogen Normal Negative mg/dL Urine Leukocyte Esterase Negative Negative /uL Urine RBC 21 0 - 3 /hpf Urine Microscopic WBC 3 0-3 /HPF Urine Squamous Epithelial Cells None seen <5 /hpf Urine Bacteria Few H None Seen /hpf Urine Glucose Normal Normal mg/dL White Blood Count 10.0 4.4-10.8 10^3/uL Red Blood Count 5.06 4.5-5.90 10^6/uL Hemoglobin 15.1 13.5-17.5 g/dL Hematocrit 45.0 41.0-53.0 % Mean Corpuscular Volume 88.8 80.0-100.0 fL Mean Corpuscular Hemoglobin 29.7 28.0-32.0 pg Mean Corpuscular Hemoglobin Concent 33.5 32.0-36.0 g/dL Red Cell Distribution Width 14.2 11.8-14.3 % Platelet Count 206 140-450 10^3/uL Mean Platelet Volume 9.2 6.9-10.8 fL Neutrophils (%) (Auto) 84.0 H 37.0-80.0 % Lymphocytes (%) (Auto) 10.4 10.0-50.0 % Monocytes (%) (Auto) 5.2 0.0-12.0 % Eosinophils (%) (Auto) 0.1 0.0-7.0 % Basophils (%) (Auto) 0.3 0.0-2.0 % Neutrophils # (Auto) 8.4 1.6-8.6 10 ^3/uL Lymphocytes # (Auto) 1.0 0.4-5.4 10 ^3/uL Monocytes # (Auto) 0.5 0-1.3 10 ^3/uL Eosinophils # (Auto) 0 0-0.8 10 ^3/uL Basophils # (Auto) 0 0-0.2 10 ^3/uL Nucleated Red Blood Cells 0.0 % Sodium Level 140 136-145 mmol/L Potassium Level 4.3 3.5-5.1 mmol/L Chloride Level 103 98-107 mmol/L Carbon Dioxide Level 28 20-31 mmol/L Anion Gap 9 5-15 Blood Urea Nitrogen 10 9-23 mg/dL Creatinine 0.81 0.700-1.30 mg/dL Glomerular Filtration Rate Calc 87 >90 mL/min BUN/Creatinine Ratio 12.3 10.0-20.0 Serum Glucose 132 H 74-106 mg/dL Calcium Level 9.5 8.7-10.4 mg/dL Time of 1ST Reevaluation: 16:14 (Case discussed with cardiology on the phone Dr. Jose. ) Reevaluation 1ST: Improved Time of 2ND Reevaluation: 16:38 (Troponin is more elevated. Cardiology is at bedside. They are taking the patient to the laundry laborer.) Time of 3RD Reevaluation: 16:56 (THE CASE WAS DISCUSSED WITH THE [facility] ADMITTING TEAM (HPI, PHYSICAL EXAM, LABS AND DIAGNOSTIC TESTS THAT WERE AVAILABLE AT THE TIME OF DISPOSITION, ED COURSE, TREATMENT PLAN) ON THE PHONE. THEY AUTHORIZED US TO KEEP THE PATIENT IN OUR FACILITY FOR FURTHER EVALUATION AND TREATMENT. ---[place]. AUTHORIZATION NUMBER IS--[id number]) Patient Education/Counseling: Diagnosis, Treatment Family Education/Counseling: Diagnosis, Treatment SEPSIS Sepsis Screen Date sepsis recognized/suspect: Jul 01, 2025 Time Sepsis recognized/suspect: 1510 Recent Procedure: No On Antibiotic Therapy: No Respiratory Rate >20: No Heart Rate >90: No Temp<36 C (96.8 F) or >38.3 C: No SBP <90 or MAP <65 mmHG: No New Acute Mental Status Change: No Is the patient on CPAP, BIPAP,: No Physician Orders Chest Portable (07/01/25 15:10) Electrocardigram (07/01/25 15:10) Troponin-I Hs (07/01/25 18:10) Electrocardigram (07/01/25 16:10) Electrocardigram (07/01/25 18:10) Insert Chapa Catheter QSHIFT (07/01/25 15:17) * Cardiology Consult (07/01/25 16:51) Cl Left Heart Cath (07/01/25 16:53) Obtain Consent For: (07/01/25 16:53) Shave Both Groins (07/01/25 16:53) Provide Education Materials (07/01/25 16:53) Obtain Consent For Anesthesia (07/01/25 16:53) Vital Signs Date Time Temp Pulse Resp B/P (MAP) Pulse Ox O2 Delivery O2 Flow Rate FiO2 07/01/25 16:34 72 07/01/25 15:59 76 07/01/25 15:57 97.9 75 15 90/59 (69) 96 97.9 07/01/25 15:35 77 07/01/25 15:14 75 15 96 Room Air* 0 21 07/01/25 15:11 97.8 71 16 170/96 97 97.8 Laboratory Tests Test 07/01/25 15:09 White Blood Count 10.0 10^3/uL (4.4-10.8) Departure 1 Departure Time of Disposition: 16:30 Impression: Primary Impression: Acute urinary retention Additional Impression: NSTEMI (non-ST elevated myocardial infarction) Disposition: ADMITTED INPATIENT Admit to: Tele Condition: Guarded Discharged With: Self I personally scribed for YUNIER PATEL DO ([email or web address]) on 07/01/25 at 15:48. Electronically submitted by Caron Lundberg ([email or web address]). YUNIER PATEL DO Jul 01, 2025 15:48
--- NOTE | 2025-07-01 15:58 | DVH ---
INDICATION: cp TECHNIQUE: Frontal view of the chest. COMPARISON: XY CHEST PORTABLE on DOS: 10/30/24, XY CHEST PORTABLE on DOS: 10/29/24 FINDINGS/IMPRESSION: Minimal basilar opacities. The cardiomediastinal silhouette is unchanged. No pleural effusion or pneumothorax. Unchanged osseous structures.
[2025-07-01 15:59] LABS: Urine Protein, UAD Negative (Negative)
--- NOTE | 2025-07-01 16:55 | DVHINCON2 ---
Date Seen: Jul 01, 2025 Referring Physician MD Poppy Reason for Consultation NSTEMI History of Present Illness This is a Iraqi-speaking 84-year-old male patient who presents to the emergency room with chief complaint of chest pain and urinary retention. The patient states that he initially went to [facility] and came to the emergency room for further evaluation. He reports he began experiencing urinary retention at approximately 1:00 a.m. this morning. Shortly thereafter, he began experiencing some chest discomfort. He describes it as unprovoked, constant, pressure-like in nature, substernal and nonradiating. He denies any associated symptoms. It is worth noting, that the patient was seen at this facility on October 29, 2024 as a code STEMI and he describes similar symptoms to this visit. Initial twelve lead electrocardiogram reveals normal sinus rhythm with right bundle branch block and nonspecific ST segment changes to lateral leads. Initial troponin level of 1569ng/L with up trend and current peak level of 2213ng/L. Significant past medical history includes coronary artery disease status post PTCA x 4 MAURIZIO (on ASA), recent STEMI on 10/29/2024 requiring PCI to LAD, congestive heart failure, atrial flutter (on low-dose Eliquis), hypertension, dyslipidemia, and BPH. The patient follows up with brand protection manager in the outpatient setting. Past Medical History Past medical history reviewed. No other significant than mentioned above. Past Surgical History Multiple PTCAs Family History: FH: stroke G8 MOTHER G8 FATHER Family History Family history reviewed. Social History Denies the use of tobacco, alcohol or illicit drugs. Allergies: Coded Allergies: Baclofen (Verified Allergy, Unknown, 07/01/25) Home Meds Active Scripts Finasteride (Finasteride) 5 Mg Tab, 1 TAB PO DAILY, #30 TAB 3 Refills Prov:REGULO HUMPHREYS MD 11/01/24 Apixaban Base (ELIQUIS) 2.5 Mg Tab, 2.5 MG PO BID for 30 Days, #60 TAB 3 Refills Prov:ELICEO JACKSON NP 10/31/24 Aspirin (Aspir-81) 81 Mg Tab, 1 TAB PO DAILY for 30 Days, #30 TAB 0 Refills Stop after 30 days, patient will be on eliquis and plavix Prov:ELICEO JACKSON NP 10/31/24 Atorvastatin Calcium (ATORVASTATIN CALCIUM) 40 Mg Tab, 1 TAB PO QPM, #90 TAB 3 Refills Prov:ELICEO JACKSON HYDROMETEOROLOGIST 10/31/24 Tamsulosin Hcl (Flomax) 0.4 Mg Cap, 1 CAP PO DAILY, #30 CAP 11 Refills Prov:ELICEO JACKSON HYDROMETEOROLOGIST 10/31/24 Sacubitril-Valsartan (Entresto 24-26 mg) 1 Tab Tab, 0.5 TAB PO BID for 30 Days, #30 TAB 3 Refills Prov:ELICEO JACKSON HYDROMETEOROLOGIST 10/31/24 Carvedilol (COREG) 3.125 Mg Tab, 3.125 MG OR BID for 30 Days, #60 TAB Prov:ELICEO JACKSON NP 10/31/24 Clopidogrel Bisulfate (Plavix) 75 Mg Tab, 1 TAB PO DAILY for 30 Days, #30 TAB 3 Refills Prov:ELICEO JACKSON NP 10/31/24 Home Meds Home medications reviewed. Review of Systems Constitutional: No symptom reported Ears, Nose, & Throat: No symptom reported Eyes: No symptom reported Neurological: No symptoms reported Pulmonary/Respiratory: No symptoms reported Cardiovascular: Chest pain Gastrointestinal: No symptom reported Genitourinary: Urinary retention Musculoskeletal: No symptom reported Skin: No symptom reported Psychiatric: No symptom reported Endocrine: No symptom reported Hematologic/Lymphatic: No symptom reported Vital Signs Vital Signs Date Time Temp Pulse Resp B/P (MAP) Pulse Ox O2 Delivery O2 Flow Rate FiO2 07/01/25 16:34 72 07/01/25 15:57 97.9 15 90/59 (69) 96 97.9 07/01/25 15:14 Room Air* 0 21 Physical Exam General Appearance: Cooperative. Well-developed. Well-nourished. No acute distress. Pulmonary/Respiratory: Clear, bilateral breaths sounds. Cardiovascular/Chest: Regular rate and rhythm. Peripheral Pulses: 2+ Radial (R). 2+ Radial (L). 2+ Pedal (R). 2+ Pedal (L) Abdominal Exam: Normal bowel sounds. Ankle Exam: Negative ankle edema Lower extremities: Negative lower extremity edema Neuro/Mental Status: A/OX4, coherent. Thoughts/Psych: Normal thought pattern. Appropriate mood and affect. Good judgment and insight. Appearance: No acute distress. Skin Exam: Normal inspection. Normal color. Warm and dry. Labs/Diagnostic Data Labs Test 07/01/25 16:07 07/01/25 15:32 07/01/25 15:09 Range/Units Troponin I High Sensitivity 2213 *H </=54 ng/L Urine Color Light-yellow Yellow Urine Clarity Clear Clear Urine pH 6.5 5.0-9.0 Urine Specific [place] 1.013 1.001-1.035 Urine Protein Negative Negative Urine Ketones Trace Negative Urine Blood Trace H Negative /uL Urine Nitrite Negative Negative Urine Bilirubin Negative Negative Urine Urobilinogen Normal Negative mg/dL Urine Leukocyte Esterase Negative Negative /uL Urine RBC 21 0 - 3 /hpf Urine Microscopic WBC 3 0-3 /HPF Urine Squamous Epithelial Cells None seen <5 /hpf Urine Bacteria Few H None Seen /hpf Urine Glucose Normal Normal mg/dL White Blood Count 10.0 4.4-10.8 10^3/uL Red Blood Count 5.06 4.5-5.90 10^6/uL Hemoglobin 15.1 13.5-17.5 g/dL Hematocrit 45.0 41.0-53.0 % Mean Corpuscular Volume 88.8 80.0-100.0 fL Mean Corpuscular Hemoglobin 29.7 28.0-32.0 pg Mean Corpuscular Hemoglobin Concent 33.5 32.0-36.0 g/dL Red Cell Distribution Width 14.2 11.8-14.3 % Platelet Count 206 140-450 10^3/uL Mean Platelet Volume 9.2 6.9-10.8 fL Neutrophils (%) (Auto) 84.0 H 37.0-80.0 % Lymphocytes (%) (Auto) 10.4 10.0-50.0 % Monocytes (%) (Auto) 5.2 0.0-12.0 % Eosinophils (%) (Auto) 0.1 0.0-7.0 % Basophils (%) (Auto) 0.3 0.0-2.0 % Neutrophils # (Auto) 8.4 1.6-8.6 10 ^3/uL Lymphocytes # (Auto) 1.0 0.4-5.4 10 ^3/uL Monocytes # (Auto) 0.5 0-1.3 10 ^3/uL Eosinophils # (Auto) 0 0-0.8 10 ^3/uL Basophils # (Auto) 0 0-0.2 10 ^3/uL Nucleated Red Blood Cells 0.0 % Sodium Level 140 136-145 mmol/L Potassium Level 4.3 3.5-5.1 mmol/L Chloride Level 103 98-107 mmol/L Carbon Dioxide Level 28 20-31 mmol/L Anion Gap 9 5-15 Blood Urea Nitrogen 10 9-23 mg/dL Creatinine 0.81 0.700-1.30 mg/dL Glomerular Filtration Rate Calc 87 >90 mL/min BUN/Creatinine Ratio 12.3 10.0-20.0 Serum Glucose 132 H 74-106 mg/dL Calcium Level 9.5 8.7-10.4 mg/dL Assessment NSTEMI, rule out progressive coronary artery disease Coronary artery disease s/p PTCA x 4 MAURIZIO (on ASA) Chronic compensated HFrEF, NYHA class II History of atrial flutter (on low-dose Eliquis) Hypertension Dyslipidemia BPH Plan/Recommendation We will continue with the following plan/recommendations (Dr. Jose): Case reviewed and discussed with . Given the patient's elevated troponin level, presenting symptoms, and twelve lead electrocardiogram, we will recommend for the patient undergo a coronary angiogram with left heart catheterization. The procedure was discussed with the patient in full detail including risks and benefits. Risks include but are not limited to bleeding, contrast-induced nephropathy, coronary dissection, stroke, and even . The patient understands and is agreeable to undergo the procedure. Plan was also discussed with the patient's daughter Gabriella. We will schedule the patient at soonest availability on 07/01/2025. Previous transthoracic echocardiogram from 10/29/2024 reveals an EF 30%. We will proceed with obtaining a new transthoracic echocardiogram to evaluate cardiac function. Continue with close cardiac surveillance. of Thank you for allowing us to care for this patient. Please call with any questions or concerns. Critical care time spent: 44 minutes This medical document was created using an electronic medical record system with voice recognition software and computerized dictation system. Although this document has been carefully reviewed, there might still be some phonetic and typographical errors. Occasional wrong-word or ``sound-alike substitutions may have occurred due to the inherent limitations of voice recognition software. These areas are purely typographical due to imperfections of the software programs and do not reflect any compromise in the patient's medical care. Please read the chart carefully and recognize, using context, where these substitutions have occurred. Plan discussed with: Patient NYHA Physical activity limitations: Class2(Slight)fatigue,sob (palpitatns, angina w activityv) Date of Service: Jul 01, 2025 Billing Provider: KATHRYN HORVATH Cardiology Common Codes: 42979-FFRIUPS INP/OBS CARE (High) Cardiology Consultation Codes: 97794-[id number] CONSULT <45MIN KATHRYN HORVATH Jul 01, 2025 16:55
[2025-07-01] MEDS: IODIXANOL 320MG/ML 100ML BTL IV ONE (17:00)
[2025-07-01] MEDS: HEPARIN IN NS 1000Units/500mL 1,500 ML ONE (17:01)
[2025-07-01] MEDS ORDERED: HYDROcodone-ACET 5/325MG TAB PO PRN (17:15)
[2025-07-01] MEDS ORDERED: ACETAMINOPHEN 325 MG TAB PO PRN (17:15)
[2025-07-01] MEDS ORDERED: ONDANSETRON HCL 4 MG/2 ML VIAL IV PRN (17:15)
[2025-07-01] MEDS ORDERED: MORPHINE SULFATE INJ 2 MG/ml SYRG IV PRN (17:15)
[2025-07-01] MEDS ORDERED: ATORVASTATIN 20 MG TAB PO ONE (17:15)
[2025-07-01] MEDS ORDERED: TEMAZEPAM 15 MG CAP PO PRN (17:15)
--- NOTE | 2025-07-01 17:17 | DVHHPRES ---
History of Present Illness Resident Creating Document: DASIA SPRAGUE RESIDENT History of Present Illness Tom Grissom, a Kazakh-speaking 84-year-old male with past medical history of CAD s/p PTCA with 4 MAURIZIO (on ASA), chronic HFrEF NYHA II, atrial flutter (on Eliquis), hypertension, dyslipidemia, and BPH presents with chest pain and urinary retention after initially visiting urgent care; chest pain began after urinary retention early this morning, described as constant, pressure-like, substernal, and nonradiating without associated symptoms; notable history includes prior STEMI on 10/29/2024 with similar symptoms,; initial ECG shows NSR with RBBB and nonspecific ST changes, troponin trending up from 1569 ng/L to 2213 ng/L, concerning for NSTEMI and progressive CAD. PMHx: CAD s/p PTCA with 4 MAURIZIO (on ASA), chronic HFrEF NYHA II, atrial flutter (on Eliquis), hypertension, dyslipidemia, and BPH PSHx: PTCA with 4 MAURIZIO Family history: CAD, HTN, stroke Social history: Denies the use of tobacco, alcohol or illicit drugs. Lives In Home. Review of Systems Constitutional: No: Fever, Chills, Sweats, Weakness, Malaise, Other Eyes: No: Pain, Vision change, Conjunctivae inflammation, Eyelid inflammation, Other, Redness ENT: No: Ear pain, Ear discharge, Nose pain, Nose discharge, Nose congestion, Mouth pain, Mouth swelling, Throat pain, Throat swelling, Other Respiratory: No: Cough, Dry, Shortness of breath, SOB with excertion, Wheezing, Hemoptysis, Pleuritic Pain, Sputum, Wheezing, Other Cardiovascular: Chest Pain; No: Palpitations, Orthopnea, Paroxysmal Noc. Dyspnea, Edema, Lt Headedness, Other Gastrointestinal: No: Nausea, Vomiting, Abdominal Pain, Diarrhea, Constipation, Melena, Hematochezia, Other Genitourinary: No Dysuria, No Frequency, No Incontinence, No Hematuria, No Retention, No Other Musculoskeletal: No: other, neck pain, shoulder pain, arm pain, back pain, hand pain, leg pain, foot pain Skin: No: Rash, Lesions, Jaundice, Bruising, Other Neurological: No: Weakness, Numbness, Incoordination, Change in speech, Confusion, Seizures, Other Allergies: Coded Allergies: Baclofen (Verified Allergy, Unknown, 07/01/25) Medications Current Medications Medications Dose Ordered Sig/Olu Route Start Time Stop Time Status Last Admin Dose Admin Acetaminophen/ Hydrocodone Bitart 1 tab Q4HP PRN PO 07/01/25 17:15 Temazepam 15 mg QHSP PRN PO 07/01/25 17:15 Ondansetron HCl 4 mg Q4HP PRN IV 07/01/25 17:15 UNV Acetaminophen 650 mg Q6HP PRN PO 07/01/25 17:15 Morphine Sulfate 2 mg Q4HPRN PRN IV 07/01/25 17:15 Aspirin 81 mg DAILY PO 07/02/25 10:00 Atorvastatin Calcium 40 mg HS PO 07/01/25 22:00 Exam Vital Signs Vital Signs Date Time Temp Pulse Resp B/P (MAP) Pulse Ox O2 Delivery O2 Flow Rate FiO2 07/01/25 16:34 72 07/01/25 15:57 97.9 15 90/59 (69) 96 97.9 07/01/25 15:14 Room Air* 0 21 General Appearance: Alert, Oriented X3, mild distress HEENT: Atraumatic, PERRLA, EOMI, Mucous membr. moist/pink Respiratory: Clear to auscultation, Normal air movement Cardiovascular: Regular rate, Normal S1, Normal S2 Abdominal: Normal bowel sounds, Soft, No tenderness, No hepatospenomegaly Extremities: No clubbing, No cyanosis, No edema, Normal pulses, No tenderness/swelling Skin: No rashes, No breakdown, No significant lesion Neuro: Normal speech, Strength at 5/5 X4 ext, Normal tone, Sensation intact, Cranial nerves 3-12 NL Psych/Mental Status: Mental status NL, Mood NL Labs/Xrays Labs Test 07/01/25 16:07 07/01/25 15:32 07/01/25 15:09 Range/Units Troponin I High Sensitivity 2213 *H </=54 ng/L Urine Color Light-yellow Yellow Urine Clarity Clear Clear Urine pH 6.5 5.0-9.0 Urine Specific [place] 1.013 1.001-1.035 Urine Protein Negative Negative Urine Ketones Trace Negative Urine Blood Trace H Negative /uL Urine Nitrite Negative Negative Urine Bilirubin Negative Negative Urine Urobilinogen Normal Negative mg/dL Urine Leukocyte Esterase Negative Negative /uL Urine RBC 21 0 - 3 /hpf Urine Microscopic WBC 3 0-3 /HPF Urine Squamous Epithelial Cells None seen <5 /hpf Urine Bacteria Few H None Seen /hpf Urine Glucose Normal Normal mg/dL White Blood Count 10.0 4.4-10.8 10^3/uL Red Blood Count 5.06 4.5-5.90 10^6/uL Hemoglobin 15.1 13.5-17.5 g/dL Hematocrit 45.0 41.0-53.0 % Mean Corpuscular Volume 88.8 80.0-100.0 fL Mean Corpuscular Hemoglobin 29.7 28.0-32.0 pg Mean Corpuscular Hemoglobin Concent 33.5 32.0-36.0 g/dL Red Cell Distribution Width 14.2 11.8-14.3 % Platelet Count 206 140-450 10^3/uL Mean Platelet Volume 9.2 6.9-10.8 fL Neutrophils (%) (Auto) 84.0 H 37.0-80.0 % Lymphocytes (%) (Auto) 10.4 10.0-50.0 % Monocytes (%) (Auto) 5.2 0.0-12.0 % Eosinophils (%) (Auto) 0.1 0.0-7.0 % Basophils (%) (Auto) 0.3 0.0-2.0 % Neutrophils # (Auto) 8.4 1.6-8.6 10 ^3/uL Lymphocytes # (Auto) 1.0 0.4-5.4 10 ^3/uL Monocytes # (Auto) 0.5 0-1.3 10 ^3/uL Eosinophils # (Auto) 0 0-0.8 10 ^3/uL Basophils # (Auto) 0 0-0.2 10 ^3/uL Nucleated Red Blood Cells 0.0 % Sodium Level 140 136-145 mmol/L Potassium Level 4.3 3.5-5.1 mmol/L Chloride Level 103 98-107 mmol/L Carbon Dioxide Level 28 20-31 mmol/L Anion Gap 9 5-15 Blood Urea Nitrogen 10 9-23 mg/dL Creatinine 0.81 0.700-1.30 mg/dL Glomerular Filtration Rate Calc 87 >90 mL/min BUN/Creatinine Ratio 12.3 10.0-20.0 Serum Glucose 132 H 74-106 mg/dL Calcium Level 9.5 8.7-10.4 mg/dL SEPSIS Sepsis Screen Date sepsis recognized/suspect: Jul 01, 2025 Time Sepsis recognized/suspect: 1513 Recent Procedure: No On Antibiotic Therapy: No Respiratory Rate >20: No Heart Rate >90: No Temp<36 C (96.8 F) or >38.3 C: No SBP <90 or MAP <65 mmHG: No New Acute Mental Status Change: No Is the patient on CPAP, BIPAP,: No Physician Orders Chest Portable (07/01/25 15:10) Electrocardigram (07/01/25 15:10) Troponin-I Hs (07/01/25 18:10) Electrocardigram (07/01/25 16:10) Electrocardigram (07/01/25 18:10) Insert Chapa Catheter QSHIFT (07/01/25 15:17) * Cardiology Consult (07/01/25 16:51) Cl Left Heart Cath (07/01/25 16:53) Obtain Consent For: (07/01/25 16:53) Shave Both Groins (07/01/25 16:53) Provide Education Materials (07/01/25 16:53) Obtain Consent For Anesthesia (07/01/25 16:53) Admit (07/01/25 17:05) Allergies (07/01/25 17:05) Code Status (07/01/25 17:05) Oxygen Per Hour (07/01/25 17:05) Hydrocodone-Acet 5/325mg Tab ([place] 5/32 (07/01/25 17:15) Temazepam (Restoril) (07/01/25 17:15) Ondansetron Hcl (Zofran) (07/01/25 17:15) Complete Blood Count (07/02/25 04:00) Comprehensive Metabolic Panel (07/02/25 04:00) Npo (Nothing By Mouth) Diet (07/01/25 Dinner) Echo 2d Mode Cardiac Dop (07/01/25 17:05) Condition: Serious (07/01/25 17:05) Acetaminophen Tablet (Tylenol Tablet) (07/01/25 17:15) Morphine Sulfate Injection (07/01/25 17:15) Aspirin Chewable Tablet (07/02/25 10:00) Stat Ekg For Chest Pain (07/01/25 17:12) Atorvastatin (Lipitor) (07/01/25 22:00) Vital Signs Date Time Temp Pulse Resp B/P (MAP) Pulse Ox O2 Delivery O2 Flow Rate FiO2 07/01/25 16:34 72 07/01/25 15:59 76 07/01/25 15:57 97.9 75 15 90/59 (69) 96 97.9 07/01/25 15:35 77 07/01/25 15:14 75 15 96 Room Air* 0 21 07/01/25 15:11 97.8 71 16 170/96 97 97.8 Laboratory Tests Test 07/01/25 15:09 White Blood Count 10.0 10^3/uL (4.4-10.8) Assessment/Plan Assessment/Plan #Type II NSTEMI, high risk: cardiology consulted, iv heparin drip, pain mx with NTG and morphine, BNP & echo. EKG for dynamic changes. Review the LVEF, GDMT as tolerated. #chronic HFrEF NYHA II: 30 % EF in past echo in 11/07, repeat echo. Check BNP, follow labs. mildly hypovolemic, gentle hydration with close monitoring. cxr unremarkable, check viral panel. #atrial flutter, paroxysmal (on Eliquis): Hold Eliquis, keep on heparin drip if needed reversal at any point. start beta blockade if HR elevated. #Essential hypertension: hold home antihypertensives, keep MAP>65, hypovolemic, gentle hydration. #dyslipidemia: continue atorvastatin, check CMP. #BPH: tamsulosin and finasteride to continue, check for urinalysis. 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 Moderate tricuspid regurgitation. Mild aortic insufficiency. PUD prophylaxis: protonix 40mg/not needed DVT prophylaxis: Heparin drip/SCD Barriers to discharge: Medical diagnosis and management in progress. Patient lives with family. Independent support for ADL. PT and SW consult as needed. PCP: Julio Lamar. Specialist Relevant To Admission: Cardiology consulted. Case discussed with Dr. Rosenthal. Code Status: Full Code. Discussion for goals of care and care plan needed total 27 minutes bedside. Plan discussed with: Patient My Orders Orders - DASIA SPRAGUE RESIDENT Procedure Category Date Status Time Admit ADMIT 07/01/25 Transmitted 17:05 Allergies DEREK 07/01/25 In Process 17:05 Code Status CODE 07/01/25 Transmitted 17:05 Oxygen Per Hour RT 07/01/25 Transmitted 17:05 Hydrocodone-Acet PHA 07/01/25 In Process 5/325mg Tab ([place] 17:15 Temazepam (Restoril) PHA 07/01/25 In Process 17:15 Ondansetron Hcl PHA 07/01/25 Logged (Zofran) 17:15 Complete Blood Count LAB 07/02/25 Verified 04:00 Comprehensive LAB 07/02/25 Verified Metabolic Panel 04:00 Npo (Nothing By DIET 07/01/25 Transmitted Mouth) Diet Dinner Echo 2d Mode Cardiac US 07/01/25 Logged DOP 17:05 Condition: Serious DEREK 07/01/25 In Process 17:05 Acetaminophen Tablet PHA 07/01/25 In Process (Tylenol Tablet) 17:15 Morphine Sulfate PHA 07/01/25 In Process Injection 17:15 Aspirin Chewable PHA 07/02/25 In Process Tablet 10:00 Stat Ekg For Chest DEREK 07/01/25 In Process Pain 17:12 Atorvastatin (Lipitor) PHA 07/01/25 In Process 22:00 Date of Service: Jul 01, 2025 Billing Provider: RUKHSANA ROSENTHAL MD Common Visit Codes: 45032-[id number] INP/OBS CARE (HIGH) Secondary Visit Codes: 46519-ECXHPINE CARE PLAN 30 MINUTES DASIA SPRAGUE RESIDENT Jul 01, 2025 17:17
[2025-07-01] MEDS: MIDAZOLAM HCL 2MG/2ML 2ml VIAL (1mg/ml) ONE (17:22)
[2025-07-01] MEDS: fentaNYL CITRATE 100 MCG/2 ML VL ONE (17:22)
[2025-07-01] MEDS: HEPARIN SODIUM (PORCINE) 5000 UNITS/ML 1ML VIAL ONE (17:23)
[2025-07-01] MEDS: VERAPAMIL 2.5MG/ML INJ 2ML VIAL IV ONE (17:23)
[2025-07-01] MEDS: LIDOCAINE 2%HCL (LOCAL ANESTH.) INJ 20ML MDV ONE (17:25)
--- NOTE | 2025-07-01 18:41 | DVHOP2 ---
Operative Report - 2 Report Details Date: 07/01/25 Preop Diagnosis: CAD. Acute coronary syndrome. Postop Diagnosis: Non ST-elevation myocardial infarction type II Surgeon: Abel Jose MD Anesthesiologist: Conscious sedation. I personally supervised the administration of conscious sedation medications to the patient and monitored the patient for approximately 20 minutes throughout the procedure Anesthesia: Mac Consent: The patient was informed of the risks and benefits of the procedure. These include but are not limited to complications of anesthesia, postoperative infection, incomplete relief of symptoms, recurrence of symptoms, damage to blood vessels, nerves and tendons, deep venous thrombosis, pulmonary embolism and possible need for repeat surgery in the future. Complications: No complications Findings: No significant CAD progression Indications for Surgery: Elevated troponins. Chest pain. Name of Procedure Performed Left heart catheterization. Bilateral cine coronary angiography. Left ventriculography. Procedure Details Procedure Details: Prior local anesthesia with 2% lidocaine to the right wrist and full informed consent obtained the patient was prepped and draped in usual fashion followed by placement of a six Setswana slender sheath into the right radial artery through which a tiger catheter was used for ventriculography and cannulation of both right and left coronary ostia without complications. Hemodynamics: Aortic blood pressure was 130/70. End-diastolic pressure was 10. There was no gradient across the aortic valve on pullback. Coronary anatomy: The RCA is a nondominant vessel. There were no lesions in the RCA. Left main is large and normal. The LAD is a large vessel there is a stent in its proximal portion and midportion. There is no significant stenosis. There is mild ingrowth of plaque noted in the midportion of the stent but it does not appear to be flow limiting and/or significantly stenotic. There is comparable flow within the LAD as in the remainder of the coronary vasculature. A small diagonal branch has a proximally is a 60-70% stenosis ostial. This is not amenable to angioplasty. The circumflex is a large vessel with three obtuse marginal branches and a PDA. There is mild plaquing of the bifurcation of the PDA and posterolateral branches however no critical lesions noted. No flow-limiting lesions observed. The marginals are otherwise free of significant disease. A small intermediate branch has a 60-70% stenosis proximally. This is not amenable to angioplasty. Ventriculography in the JOLLEY projection shows no significant regional wall motion abnormalities. EF is about 60%. Impression: Normal left ventricular end-diastolic pressure at rest with normal ejection fraction. Stented LAD without significant in stent restenosis and/or thrombosis. Recommendations: Continue medical therapy and risk factor modification. Condition Good Disposition Still a Patient Date of Service: Jul 01, 2025 Billing Provider: ABEL JOSE Sr., MD Cardiology Common Codes: [id number] INP/OBS CARE (High) Cardiology Procedure Codes: 24251-ZZIS HEART CATH W/INTRA INJ ABEL JOSE Sr., MD Jul 01, 2025 18:41
[2025-07-01] MEDS: SODIUM CHLORIDE 0.9% 500 ML IV ONE (18:57)
[2025-07-01] MEDS: ATORVASTATIN 20 MG TAB PO SCH (21:19)
[2025-07-02] VITALS (8 sets, daily range): BP systolic 100–116; BP diastolic 57–68; PULSE 60–71; RESP 16–18; TEMP 97.2–98.1; O2SAT 94–98
[2025-07-02] MEDS: LACTATED RINGER'S 1,000 ML IV SCH (02:07)
[2025-07-02 02:28] LABS: INR 1.06 (0.9-1.15); Partial Thromboplastin Time 31.9 SEC (24.5-34.5); Prothrombin Time 11.2 sec (9.3-11.8)
[2025-07-02 02:31] LABS: Hematocrit 40.0 % (41.0-53.0); Hemoglobin 13.2 g/dL (13.5-17.5); Mean Corpuscular Hemoglobin 29.3 pg (28.0-32.0); Mean Corpuscular Volume 88.8 fL (80.0-100.0); Nucleated Red Blood Cells % 0.0 %
[2025-07-02 02:48] LABS: Alanine Aminotransferase 16.0 U/L (7-40); Alkaline Phosphatase 72.0 U/L (46-116)
[2025-07-02 02:49] LABS: Albumin 3.4 g/dL (3.2-4.8); Bilirubin, Total 0.4 mg/dL (0.2-1.0)
[2025-07-02 02:51] LABS: Alanine Aminotransferase 16 U/L (7-40); Alkaline Phosphatase 72 U/L (46-116); Anion Gap 8 (5-15); Carbon Dioxide 29 mmol/L (20-31); Chloride 106 mmol/L (98-107); Potassium 3.7 mmol/L (3.5-5.1); Sodium 143 mmol/L (136-145); Total Protein 5.4 g/dL (5.7-8.2)
[2025-07-02 02:52] LABS: Albumin 3.4 g/dL (3.2-4.8); BUN/Creatinine Ratio 17.1 (10.0-20.0); Bilirubin, Total 0.4 mg/dL (0.2-1.0); Blood Urea Nitrogen 13 mg/dL (9-23); Calcium 8.5 mg/dL (8.7-10.4); Glucose 122 mg/dL (74-106); Total Protein 5.4 g/dL (5.7-8.2)
[2025-07-02 03:06] LABS: Benzodiazephine Screen, Urine Pos (NEGATIVE)
[2025-07-02 03:07] LABS: Cannabinoid Screen, Urine Neg (NEGATIVE)
[2025-07-02 03:09] LABS: Bilirubin, Direct 0.1 mg/dL (<0.3)
[2025-07-02] MEDS: HEPARIN SODIUM (PORCINE) 5000 UNITS/ML 1ML VIAL IV ONE (03:30)
[2025-07-02] MEDS: HEPARIN DRIP/D5W 100UNITS/ML 250 ML IV SCH (03:31)
[2025-07-02 03:35] LABS: Amphetamine Screen, Urine Neg (NEGATIVE); Barbiturate Scree,Urine Neg (NEGATIVE); Cocaine Screen, Urine Neg (NEGATIVE); Opiate Scree,Urine Neg (NEGATIVE); Phencyclidine Screen, Urine Neg (NEGATIVE)
[2025-07-02 03:46] LABS: Triglycerides 147 mg/dL (< 150)
[2025-07-02 03:48] LABS: Cholesterol 100 mg/dL (< 200)
[2025-07-02 03:53] LABS: HDL Cholesterol 39 mg/dL (40-59)
[2025-07-02 03:53] LABS: COVID19 ANTIGEN SOFIA FIA NEGATIVE (NEGATIVE)
[2025-07-02] MEDS ORDERED: FINASTERIDE 5 MG TAB PO SCH (10:00)
[2025-07-02] MEDS: FINASTERIDE 5 MG TAB PO SCH (10:09)
--- NOTE | 2025-07-02 10:19 | DVHPN2 ---
Progress Note Date Seen: Jul 02, 2025 Medical Necessity Reason Pt with a Central, PICC or Fol: No Subjective Patient reports: No new complaints Review of Systems: HEENT:Normal, CVS:Normal, RESPIRATORY:Normal, GI:Normal, :Normal, MSK:Normal, NEURO:Normal Objective vital signs Vital Sign Date Time Temp Pulse Resp B/P (MAP) Pulse Ox O2 Delivery O2 Flow Rate FiO2 07/02/25 08:35 97.2 63 18 114/65 (81) 96 97.2 07/02/25 08:12 Room Air* 0 21 Total Intake and Output 07/01/25 07/01/25 07/02/25 15:00 23:00 07:00 Intake Total 471.8 ml Output Total 1150 ml 300 ml Balance -1150 ml 171.8 ml medications Current Medications Medications Dose Ordered Sig/Olu Route Start Time Stop Time Status Last Admin Dose Admin Acetaminophen/ Hydrocodone Bitart 1 tab Q4HP PRN PO 07/01/25 17:15 Temazepam 15 mg QHSP PRN PO 07/01/25 17:15 Ondansetron HCl 4 mg Q4HP PRN IV 07/01/25 17:15 Acetaminophen 650 mg Q6HP PRN PO 07/01/25 17:15 Morphine Sulfate 2 mg Q4HPRN PRN IV 07/01/25 17:15 Aspirin 81 mg DAILY PO 07/02/25 10:00 07/02/25 10:09 81 MG Atorvastatin Calcium 40 mg HS PO 07/01/25 22:00 07/01/25 21:19 40 MG Heparin Sodium/ Dextrose 250 ml @ 6.5 mls/hr Q24H IV 07/02/25 02:45 07/02/25 03:31 6.5 MLS/HR Lactated Ringer's 1,000 ml @ 75 mls/hr [id number] IV 07/02/25 01:30 07/02/25 02:07 75 MLS/HR Tamsulosin HCl 0.4 mg QPM PO 07/02/25 18:00 Finasteride 5 mg DAILY PO 07/02/25 10:00 07/02/25 10:09 5 MG Examination: GENERAL:Normal, HEENT:Normal, NECK:Normal, LUNGS:Normal, CVS:Normal, ABDOMEN:Normal, MSK:Normal, SKIN:Normal, NEURO:Normal, :Normal laboratory and microbiology Laboratory Tests 07/02/25 02:13 Test 07/02/25 02:13 Range/Units Serum Glucose 122 H 74-106 mg/dL Problem List/Assessment/Plan Problem List/Assessment/Plan #1 acute mi s/p angio: cont meds #2 h/o cad/stent #3 a fib with secondary hypercoagulable state #4 hyperlipidemia #5 bph with urinary retention/gonzalez cath #6 htn advance care planning- full code- time spent 18 mins Plan discussed with: Patient My Orders My Orders Orders - NETTA ACOSTA MD Procedure Category Date Status Time * Cardiology Consult CONS 07/01/25 Transmitted 16:51 Clopidogrel Bisulfate PHA 07/02/25 Verified (Plavix) 10:15 Clopidogrel Bisulfate PHA 07/03/25 Verified (Plavix) 10:00 Date of Service: Jul 02, 2025 Billing Provider: NETTA ACOSTA MD Common Visit Codes: [id number] INP/OBS CARE(HIGH) Secondary Visit Codes: [id number] CARE PLAN 30 MINUTES NETTA ACOSTA MD Jul 02, 2025 10:19
--- NOTE | 2025-07-02 10:31 | DVHPN2 ---
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 He denies any cardiac symptoms during assessment. Objective vital signs Vital Sign Date Time Temp Pulse Resp B/P (MAP) Pulse Ox O2 Delivery O2 Flow Rate FiO2 07/02/25 08:35 97.2 63 18 114/65 (81) 96 97.2 07/02/25 08:12 Room Air* 0 21 Total Intake and Output 07/01/25 07/01/25 07/02/25 15:00 23:00 07:00 Intake Total 471.8 ml Output Total 1150 ml 300 ml Balance -1150 ml 171.8 ml medications Current Medications Medications Dose Ordered Sig/Olu Route Start Time Stop Time Status Last Admin Dose Admin Acetaminophen/ Hydrocodone Bitart 1 tab Q4HP PRN PO 07/01/25 17:15 Temazepam 15 mg QHSP PRN PO 07/01/25 17:15 Ondansetron HCl 4 mg Q4HP PRN IV 07/01/25 17:15 Acetaminophen 650 mg Q6HP PRN PO 07/01/25 17:15 Morphine Sulfate 2 mg Q4HPRN PRN IV 07/01/25 17:15 Aspirin 81 mg DAILY PO 07/02/25 10:00 07/02/25 10:09 81 MG Atorvastatin Calcium 40 mg HS PO 07/01/25 22:00 07/01/25 21:19 40 MG Heparin Sodium/ Dextrose 250 ml @ 6.5 mls/hr Q24H IV 07/02/25 02:45 07/02/25 03:31 6.5 MLS/HR Lactated Ringer's 1,000 ml @ 75 mls/hr [id number] IV 07/02/25 01:30 07/02/25 02:07 75 MLS/HR Tamsulosin HCl 0.4 mg QPM PO 07/02/25 18:00 Finasteride 5 mg DAILY PO 07/02/25 10:00 07/02/25 10:09 5 MG Examination: GENERAL:Normal, LUNGS:Normal, CVS:Normal, NEURO:Normal laboratory and microbiology Laboratory Tests 07/02/25 02:13 Test 07/02/25 02:13 Range/Units Serum Glucose 122 H 74-106 mg/dL Problem List/Assessment/Plan Problem List/Assessment/Plan NSTEMI, ruled out progressive coronary artery disease Coronary artery disease s/p PTCA x 4 MAURIZIO (on ASA) Chronic compensated HFimEF, NYHA class II (previous echo on 10/29/24 EF 30%, now 60% on ventriculography) History of atrial flutter (on low-dose Eliquis) Hypertension Dyslipidemia BPH Plan/Recommendations (Dr. Jose): Case reviewed and discussed with . Patient was taken for coronary angiogram on 07/01/2025 which revealed no significant CAD progression and no catheter based intervention was deemed necessary at that time. Ventriculography reveals an EF of approximately 60% at that time. Continue with guideline directed medical therapy for CHF as tolerated. Continue with single antiplatelet therapy (Plavix) and DOAC therapy (Eliquis). Of note, patient medication home list significant for aspirin and Eliquis therapy. The patient should be taking Plavix and Eliquis therapy alone. The patient should not be on aspirin therapy. Continue with lipid-lowering agent. Continue with close cardiac surveillance. Thank you for allowing us to care for this patient. Please call with any questions or concerns. This medical document was created using an electronic medical record system with voice recognition software and computerized dictation system. Although this document has been carefully reviewed, there might still be some phonetic and typographical errors. Occasional wrong-word or ``sound-alike substitutions may have occurred due to the inherent limitations of voice recognition software. These areas are purely typographical due to imperfections of the software programs and do not reflect any compromise in the patient's medical care. Please read the chart carefully and recognize, using context, where these substitutions have occurred. Plan discussed with: Patient, Daughter Date of Service: Jul 02, 2025 Billing Provider: KATHRYN HORVATH Common Visit Codes: [id number] INP/OBS CARE(HIGH) KATHRYN HORVATH Jul 02, 2025 10:31
[2025-07-02 10:36] LABS: INR 1.03 (0.9-1.15); Prothrombin Time 10.9 sec (9.3-11.8)
[2025-07-02 10:38] LABS: Partial Thromboplastin Time 73.5 SEC (24.5-34.5)
[2025-07-02] MEDS ORDERED: MORPHINE SULFATE 4 MG/ML SYR/VIAL IV PRN (10:45)
[2025-07-02] MEDS: CLOPIDOGREL BISULFATE 75 MG TAB PO ONE (11:39)
[2025-07-02] MEDS: TAMSULOSIN HYDROCHLORIDE 0.4 MG CAP PO SCH (17:38)
[2025-07-02] MEDS ORDERED: TAMSULOSIN HYDROCHLORIDE 0.4 MG CAP PO SCH (18:00)
[2025-07-02] MEDS: APIXABAN 2.5 MG TAB PO SCH (21:54)
[2025-07-02] MEDS: CARVEDILOL 3.125 MG TAB PO SCH (21:55)
[2025-07-03] VITALS (7 sets, daily range): BP systolic 97–110; BP diastolic 51–68; PULSE 65–72; RESP 16–20; TEMP 36.6; O2SAT 94–97
[2025-07-03 07:06] LABS: Chloride 105 mmol/L (98-107); Potassium 4.1 mmol/L (3.5-5.1); Sodium 142 mmol/L (136-145)
[2025-07-03 07:07] LABS: Anion Gap 9 (5-15); Carbon Dioxide 28 mmol/L (20-31)
[2025-07-03 07:08] LABS: Calcium 8.7 mg/dL (8.7-10.4)
[2025-07-03 07:13] LABS: BUN/Creatinine Ratio 12.2 (10.0-20.0); Blood Urea Nitrogen 11 mg/dL (9-23); Glucose 102 mg/dL (74-106)
[2025-07-03] MEDS: CLOPIDOGREL BISULFATE 75 MG TAB PO SCH (09:46)
--- NOTE | 2025-07-03 11:20 | DVHDS2 ---
Discharge Summary Date of Admission Jul 01, 2025 at 17:05 Date of Discharge: Jul 03, 2025 Admitting Diagnosis NSTEMI type 2 Labs/Diagnostic Data: Laboratory Results Test 07/03/25 06:01 07/02/25 09:43 07/02/25 02:13 07/02/25 02:10 Sodium Level 142 mmol/L (136-145) Potassium Level 4.1 mmol/L (3.5-5.1) Chloride Level 105 mmol/L (98-107) Carbon Dioxide Level 28 mmol/L (20-31) Anion Gap 9 (5-15) Blood Urea Nitrogen 11 mg/dL (9-23) Creatinine 0.90 mg/dL (0.700-1.30) Glomerular Filtration Rate Calc 84 mL/min (>90) BUN/Creatinine Ratio 12.2 (10.0-20.0) Serum Glucose 102 mg/dL (74-106) Calcium Level 8.7 mg/dL (8.7-10.4) Prothrombin Time 10.9 sec (9.3-11.8) Prothrombin Time INR 1.03 (0.9-1.15) Activated Partial Thromboplast Time 73.5 SEC (24.5-34.5) White Blood Count 7.7 10^3/uL (4.4-10.8) Red Blood Count 4.51 10^6/uL (4.5-5.90) Hemoglobin 13.2 g/dL (13.5-17.5) Hematocrit 40.0 % (41.0-53.0) Mean Corpuscular Volume 88.8 fL (80.0-100.0) Mean Corpuscular Hemoglobin 29.3 pg (28.0-32.0) Mean Corpuscular Hemoglobin Concent 33.0 g/dL (32.0-36.0) Red Cell Distribution Width 14.3 % (11.8-14.3) Platelet Count 182 10^3/uL (140-450) Mean Platelet Volume 9.0 fL (6.9-10.8) Neutrophils (%) (Auto) 66.6 % (37.0-80.0) Lymphocytes (%) (Auto) 23.9 % (10.0-50.0) Monocytes (%) (Auto) 8.3 % (0.0-12.0) Eosinophils (%) (Auto) 0.8 % (0.0-7.0) Basophils (%) (Auto) 0.4 % (0.0-2.0) Neutrophils # (Auto) 5.1 10 ^3/uL (1.6-8.6) Lymphocytes # (Auto) 1.8 10 ^3/uL (0.4-5.4) Monocytes # (Auto) 0.6 10 ^3/uL (0-1.3) Eosinophils # (Auto) 0.1 10 ^3/uL (0-0.8) Basophils # (Auto) 0 10 ^3/uL (0-0.2) Nucleated Red Blood Cells 0.0 % Total Bilirubin 0.4 mg/dL (0.2-1.0) Direct Bilirubin 0.1 mg/dL (<0.3) Aspartate Amino Transferase (AST) 20 U/L (13-40) Alanine Aminotransferase (ALT) 16 U/L (7-40) Alkaline Phosphatase 72 U/L (46-116) Total Protein 5.4 g/dL (5.7-8.2) Albumin 3.4 g/dL (3.2-4.8) Triglycerides Level 147 mg/dL (< 150) Cholesterol Level 100 mg/dL (< 200) LDL Cholesterol 43 mg/dL (< 100) HDL Cholesterol 39 mg/dL (40-59) Thyroid Stimulating Hormone (TSH) 3.07 uIU/mL (0.55-4.78) Urine Opiates Screen Neg (NEGATIVE) Urine Fentanyl Screen Neg (NEGATIVE) Urine Barbiturates Screen Neg (NEGATIVE) Urine Phencyclidine Screen Neg (NEGATIVE) Urine Amphetamines Screen Neg (NEGATIVE) Urine Benzodiazepines Screen Pos (NEGATIVE) Urine Cocaine Screen Neg (NEGATIVE) Urine Cannabinoids Screen Neg (NEGATIVE) Test 07/02/25 02:00 07/01/25 22:26 07/01/25 15:32 Influenza Type A Antigen Negative (Negative) Influenza Type B Antigen Negative (Negative) SARS-CoV-2 Antigen (Rapid) Negative (NEGATIVE) Troponin I High Sensitivity 2375 ng/L (</=54) Urine Color Light-yellow (Yellow) Urine Clarity Clear (Clear) Urine pH 6.5 (5.0-9.0) Urine Specific [place] 1.013 (1.001-1.035) Urine Protein Negative (Negative) Urine Ketones Trace (Negative) Urine Blood Trace /uL (Negative) Urine Nitrite Negative (Negative) Urine Bilirubin Negative (Negative) Urine Urobilinogen Normal mg/dL (Negative) Urine Leukocyte Esterase Negative /uL (Negative) Urine RBC 21 /hpf (0 - 3) Urine Microscopic WBC 3 /HPF (0-3) Urine Squamous Epithelial Cells None seen /hpf (<5) Urine Bacteria Few /hpf (None Seen) Urine Glucose Normal mg/dL (Normal) Other Laboratory Tests 07/03/25 06:01 07/02/25 02:13 Brief Hx & Hospital Course: History of Present Illness Tom Grissom, a Armenian-speaking 84-year-old male with past medical history of CAD s/p PTCA with 4 MAURIZIO (on ASA), chronic HFrEF NYHA II, atrial flutter (on Eliquis), hypertension, dyslipidemia, and BPH presents with chest pain and urinary retention after initially visiting urgent care; chest pain began after urinary retention early this morning, described as constant, pressure-like, substernal, and nonradiating without associated symptoms; notable history includes prior STEMI on 10/29/2024 with similar symptoms,; initial ECG shows NSR with RBBB and nonspecific ST changes, troponin trending up from 1569 ng/L to 2213 ng/L, concerning for NSTEMI and progressive CAD. Course of hospitalization: Patient was taken to the cardiac catheterization lab on emergent basis given elevation in troponin levels. Patient was found to have no acute CAD amenable for intervention at this time. Previous stent placement is patent without any degradation in ERWIN flow. Patient was restarted on Eliquis and Plavix postprocedure. Apparently, patient has symptoms were more urological with urinary retention. Chapa catheter was placed. At this time patient will be discharged home on all previous home medications and is instructed to follow up with [facility] appointment in his coming Sunday. Patient will be discharged home with a Chapa catheter to leg bag. Discussion was made with the patient as well as patient's daughter who is a registered nurse. All questions answered. Physical examination General: Alert and Oriented x3. No acute distress. Well-nourished. Eyes: EOMI. Anicteric. HENT: Moist mucous membranes. Lungs: Clear to auscultation bilaterally. No accessory muscle use. Cardiovascular: Regular rate and rhythm. No murmur. No JVD. Abdomen: Soft, non-tender and non-distended. No palpable masses. Extremities: No edema. Non-tender. Urology: Chapa catheter Skin: No rashes or lesions. Warm. Neurologic: No focal neurological deficits. CN II-XII grossly intact, but not individually tested. Psychiatric: Cooperative. Appropriate mood and affect. Total time spent with patient discussing and formulating plan of care: 35 minutes. This medical document was created using an electronic medical record system with [employer] dictation system. Although this document has been carefully reviewed, there may still be some phonetic and typographical errors. These areas are purely typographical due to imperfections of the software programs, and do not reflect any compromise in the patient's medical care. Consults/Reason for consult Cardiology: NSTEMI Operations or Procedures Left heart catheterization Condition at Discharge: Good Final Diagnosis/Problems List Non ST-elevation myocardial infarction type II secondary to demand ischemia Obstructive uropathy BPH Dyslipidemia Primary hypertension Atrial fibrillation Discharge Disposition: Home Discharge Instruct/Medications Diet: Cardiac 2g Na,low cholest Activity: No Restrictions, As Tolerated Follow Up/Referral: Follow up with PCP in 1-2 weeks Follow up with established urology appointment on 07/06/2025 Medications: Continue all home medications Scheduled Apixaban Base (Eliquis), 2.5 MG PO BID Aspirin (Aspir-81), 1 TAB PO DAILY Atorvastatin Calcium (Atorvastatin Calcium), 1 TAB PO QPM Carvedilol (Coreg), 3.125 MG OR BID Clopidogrel Bisulfate (Plavix), 1 TAB PO DAILY Finasteride (Finasteride), 1 TAB PO DAILY Sacubitril-Valsartan (Entresto 24-26 mg), 0.5 TAB PO BID Tamsulosin Hcl (Flomax), 1 CAP PO DAILY 36 Discharge Statement: "Patient was advised to return to the ER or call 911 if any headaches, dizziness, shortness of breath, chest pain, abdominal pain, bleeding, fevers, or worsening of medical condition. Patient was counseled about treatment plan, medications, possible side effects, patientverbalized understanding. All questions were answered to the best of my ability. This discharge took greater then 30 minutes in planning, reviewing documentation, counseling the patient, and discussing with other team members." ASSESSMENT ASSESSMENT Assessment Non ST-elevation myocardial infarction type II Date of Service: Jul 03, 2025 Billing Provider: ELICEO JACKSON NP Common Visit Codes: 44105-KRM/OBS DISCH DAY >30min ELICEO JACKSON NP Jul 03, 2025 11:20
--- NOTE | 2025-07-03 11:30 | DVHSR ---
APPROVED REPORT EXAM: Two-dimensional and M-mode echocardiogram with Doppler and color Doppler. Blood Pressure: 116/68 mmHg INDICATION rule out structural heart disease RISK FACTORS Height: 5'5", Weight: 116 DIMENSIONS LVDd 4.3 (3.8-5.7cm) LA (2D) 3.7 (1.9-4.0cm) Aortic Root 3.0 (2.0-3.7cm) LVDs 2.8 (2.5-4.0cm) LA (MM) (1.9-4.0cm) Aortic Cusp Exc 1.5 (1.5-2.0cm) EF (%) 65.0 (55-70%) Rt. Atrium 3.5 (1.9-4.0cm) Asc. Aorta 3.3 cm IVSd 0.8 (0.7-1.1cm) RV (D) 2.4 (1.8-2.4cm) PWd 1.1 (0.7-1.1cm) Mitral Valve Mitral Mitral Stenosis E wave 0.48m/s MV Mean GR. mmHg A wave 1.03m/s MV Peak GR. mmHg E/A ratio 0.5 2D MVA cm2 DECEL Time 227ms PRESS 1/2 Time ms Aortic Valve Aortic Valve Aortic Stenosis V1 0.98m/s AO Mean GR. 4mmHg V2 1.39m/s AO Peak GR. 8mmHg LVOT Diameter 1.9 (1.8-2.4cm) Doppler MIKI 2.00cm2 AI P 1/2 Time 519.18ms Pulmonic Valve V2 0.82m/s Conclusion Technically good study. Normal chamber sizes. There is concentric LVH. Valves are normal. Mild mitral annular calcification of the base of the posterior mitral leaflet. Left ventricular systolic performance is preserved at 60% with normal RV function. Grade 2-3 diastolic impairment/dysfunction Mild aortic insufficiency. No pericardial effusion masses or vegetations.
--- NOTE | 2025-07-03 12:00 | ECG ---
[facility] Test Date: 2025-07-01 Test Time: 15:59:45 Pat Name: FINN STORY Department: [facility] ED Patient ID: [id number] Room: 0209T A Gender: M Time Motion Analyst: gregory : 1940 Requested By: YUNIER PATEL Order Number: [id number] Reading MD: Markus Jose Measurements Intervals [place] Rate: 76 P: 30 [place]: 201 QRS: 131 QRSD: 131 T: 5 QT: 409 QTc: 460 Interpretive Statements Sinus rhythm RBBB and LPFB ST elevation, consider lateral injury Electronically Signed On 07-06-2025 15:20:21 PST by Maruks Jose Please click the below link to view image of tracing.
--- NOTE | 2025-07-03 12:00 | ECG ---
[facility] Test Date: 2025-07-01 Test Time: 15:35:48 Pat Name: FINN STORY Department: [facility] ED Patient ID: [id number] Room: 0209T A Gender: M Ground Crew Linesman: gregory : 1940 Requested By: YUNIER PATEL Order Number: [id number] Reading MD: Markus Jose Measurements Intervals [place] Rate: 77 P: 29 [place]: 191 QRS: 123 QRSD: 131 T: 21 QT: 395 QTc: 448 Interpretive Statements Sinus rhythm RBBB and LPFB ST elevation, consider lateral injury Electronically Signed On 07-06-2025 15:20:17 PST by Markus Jose Please click the below link to view image of tracing.
--- NOTE | 2025-07-03 12:01 | ECG ---
[facility] Test Date: 2025-07-01 Test Time: 16:34:40 Pat Name: FINN STORY Department[id number] Room: 0209T A Gender: M Community Dietitian: gregory : 1940 Requested By: YUNIER PATEL Order Number: [id number] Reading MD: Markus Jose Measurements Intervals [place] Rate: 72 P: 18 [place]: 189 QRS: 118 QRSD: 133 T: 3 QT: 407 QTc: 446 Interpretive Statements Sinus rhythm RBBB and LPFB Probable anteroseptal infarct, old Borderline ST elevation, lateral leads Electronically Signed On 07-06-2025 15:20:23 PST by Markus Jose Please click the below link to view image of tracing.
== END 2025-07-03 13:10 | disposition home or self-care (01) | DRG 698 ==
LOC: EDBD 15:07 → ER 15:07 → OVERFLOW 17:05 → TELE-CENTR 19:55
PROVIDERS: ADMIT Nurse Practitioner Acute Care; ATTEND Nurse Practitioner Acute Care
PROC: 4A023N7 Measurement of Cardiac Sampling and Pressure, Left Heart, Percutaneous Approach (ICD-10-PCS; principal; 2025-07-01)
PROC: B211YZZ Fluoroscopy of Multiple Coronary Arteries using Other Contrast (ICD-10-PCS; 2025-07-01)
PROC: B215YZZ Fluoroscopy of Left Heart using Other Contrast (ICD-10-PCS; 2025-07-01)
DX: N13.9 Obstructive and reflux uropathy, unspecified (principal); I21.A1 Myocardial infarction type 2; I50.22 Chronic systolic (congestive) heart failure; I11.0 Hypertensive heart disease with heart failure; I25.10 Atherosclerotic heart disease of native coronary artery without angina pectoris; I48.91 Unspecified atrial fibrillation; N40.1 Benign prostatic hyperplasia with lower urinary tract symptoms; E78.5 Hyperlipidemia, unspecified; Z20.822 Contact with and (suspected) exposure to COVID-19; I25.2 Old myocardial infarction; Z82.3 Family history of stroke; Z98.61 Coronary angioplasty status
CPT/HCPCS: 36415; 71045; 80048; 80053; 80061; 80076; 80307; 81001; 84443; 84484; 85025; 85610; 85730; 87426; 87804; 93005; 93306; 93458; 96360; 97163; 99152; G0378; J2250; Q9967